=== PATIENT | female | born 1970 | race Caucasian/White ===

== ENCOUNTER 2023-04-22 18:03 | Outpatient (CLI) | payer BC, SELFPAY | END 2023-04-22 18:04 | disposition home or self-care (01) | LOC: AMB 04-24 18:21 | PROVIDERS: PCP Family Medicine; Visit Provider Emergency Medicine | DX: R41.82 Altered mental status, unspecified (principal) | CPT/HCPCS: A0425; A0429 ==

== ENCOUNTER 2023-04-22 18:22 | Emergency (ER) | payer BC, SELFPAY ==
[2023-04-22 18:27] VITALS: BP 138/82; PULSE 74; RESP 18; TEMP 36.1; O2SAT 98
[2023-04-22 22:30] VITALS: BP 125/74; PULSE 68; RESP 18; TEMP 36.6; O2SAT 98
--- NOTE | 2023-04-23 02:19 | ED_ITS ---
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 Patient reports that she has been under some stress today. She has 2 jobs. 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 This evening she was at her 2nd job as a counselor. She began to have symptoms at around 5:00 p.m. that her typical for her migraine aura. She has long history of migraines and there often preceded by a visual aura of some flashing colitis scope lights in her vision. This lasted about 15 or 20 minutes. Subsequently she also had an episode where she said she ?just did not feel right?. She had trouble thinking of the right words for things such as the word for drywall and for other construction related words. However she was able to speak to her coworkers and people around her and they did not notice any expressive aphasia or slurred speech. There were no other focal deficits. No facial droop. No numbness or tingling in her face, ar ms or legs. No focal weakness. Symmetric blending coordinator strength that she checked with her coworkers. The symptoms of trouble thinking lasted for about 20 minutes or half an hour and then resolved. After that she also did develop a mild headache. Even that now has gotten better. At this point she is feeling back to normal. No other symptoms lately. No recent chest pain or palpitations. No fever. No recent head injury. No stiff neck. No nausea or vomiting. Related Data Home Medications Medication Instructions Recorded Confirmed allopurinol 100 mg tablet 200 mg PO DAILY 04/22/23 04/22/23 metformin 1,000 mg tablet 1,000 mg PO BID 04/22/23 04/22/23 metoprolol tartrate 50 mg tablet 50 mg PO BID 04/22/23 04/22/23 paroxetine HCl 40 mg tablet 40 mg PO DAILY 04/22/23 04/22/23 triamterene 37.5 1 cap PO QAM 04/22/23 04/22/23 mg-hydrochlorothiazide 25 mg capsule Allergies Allergy/AdvReac Type Severity Reaction Status Date / Time prochlorperazine AdvReac Hallucinati Verified 04/22/23 18:32 [From Compazine] [facility] Social History Smoking Status: Never smoker Second hand tobacco smoke exposure: No How often do you have a drink containing alcohol: never How often do you have six or more drinks on one occasion: Never AUDIT-C Alcohol total score: 0 Non-prescribed substance use: denies use Exam Narrative: Exam Narrative: Constitutional: Appears well-developed and well-nourished. Alert. Conversant. Non toxic. HENT: Head: Atraumatic. Nose: Nose normal. Mouth/Throat: Oral mucosa is clear and moist. no trismus. Pharynx normal. Tonsils symmetric. No tonsillar enlargement, erythema, or exudate. Eyes: Conjunctivae normal. EOM normal. Pupils equal, round, and reactive to light. No scleral icterus. Neck: Normal range of motion. Neck supple. No tracheal deviation present. Cardiovascular: Normal rate, regular rhythm. No gallop. No friction rub. No murmur heard. Symmetric radial artery pulses Pulmonary/Chest: Effort normal. No stridor. No respiratory distress. No wheezes. No rales. No rhonchi . No tenderness. Abdominal: Soft. Bowel sounds normal. No distension. No mass. No tenderness. No rebound. No guarding. Musculoskeletal: RUE: Normal range of motion. No tenderness. No deformity LUE: Normal range of motion. No tenderness. No deformity RLE: Normal range of motion. No edema. No tenderness. No deformity LLE: Normal range of motion. No edema. No tenderness. No deformity Lymph: No cervical adenopathy. Neurological: Mental status normal. Attention normal. Alert and oriented x3. GCS 15. Memory normal. Speech fluent. Cognition normal. Cranial Nerves intact II-XII except I did not formally test gag or visual acuity. EOMI. Palate elevates symmetrically and tongue protrudes in the midline. Strength: 5/5 trapezius on the right and left 5/5 deltoid on the right and left 5/5 biceps on the right and left 5/5 triceps on the right and left 5/5 blending coordinator on the right and left 5/5 thumb opposition on the right and le ft 5/5 finger abduction on the right and le ft 5/5 hip flexors (L3) on the right and le ft 5/5 quadriceps (L4) on the right and lef t 5/5 tibialis anterior on the right and l eft 5/5 EHL (L5) on the right and left 5/5 gastrocnemius (S1) on the right and left 5/5 hamstring on the right and left Sensation intact to light touch in both upper extremities (C4-T1) Sensation intact to light touch in Both lower extremities (L4-S1). Finger to nose and coordination normal. Gait normal. Skin: Skin is warm and dry. No rash noted. No pallor. Normal capillary refill. Psychiatric: Normal mood. Polite but mildly anxious. Const: Vital Signs, click to edit/add: Vital Signs - 24 hr 04/22/23 18:27 04/22/23 22:30 04/22/23 22:30 Temperature 96.9 F L 97.9 F 97.9 F Pulse Rate [Right Pulse Oximeter] 74 68 68 Respiratory Rate 18 18 18 Blood Pressure [Ri ght Upper Arm] 138/82 125/74 125/74 Pulse Oximetry 98 98 Oxygen Delivery Me thod Room Air Room Air Course Vital Signs Vital signs: Initial Vital Signs Temperature 96.9 F L 04/22/23 18:27 Temperature Source Temporal Artery Scan 04/22/23 18:27 Pulse Rate 74 04/22/23 18:27 Respiratory Rate 18 04/22/23 18:27 Blood Pressure 138/82 04/22/23 18:27 Blood Pressure Mean 100 04/22/23 18:27 Blood Pressure Position Sitting 04/22/23 18:27 Pulse Oximetry 98 04/22/23 18:27 Oxygen Delivery Method Room Air 04/22/23 18:27 Vital Signs Temperature 96.9 F L 04/22/23 18:27 Pulse Rate 74 04/22/23 18:27 Respiratory Rate 18 04/22/23 18:27 Blood Pressure 138/82 04/22/23 18:27 Pulse Oximetry 98 04/22/23 18:27 Oxygen Delivery Method Room Air 04/22/23 18:27 Temperature 97.9 F 04/22/23 22:30 Pulse Rate 68 04/22/23 22:30 Respiratory Rate 18 04/22/23 22:30 Blood Pressure 125/74 04/22/23 22:30 Pulse Oximetry 98 04/22/23 22:30 Oxygen Delivery Method Room Air 04/22/23 22:30 Medical Decision Making MDM Narrative Medical decision making narrative: This is a pleasant 53-year-old female presenting to the ER today with concern for an episode of neurologic symptoms. Based on the patient's reported history of visual scotomata, then brief neurologic symptoms of, followed by headache I suspect this is probably a migraine aura/migraine related phenomena. She has a known history of multiple previous migraines presenting with similar visual disturbance and headache. The 1 thing that is different tonight would be that she had an episode lasting about 20 minutes where she had trouble thinking of the right word. However during this episode she did not have any outward neurologic deficits and in fact had fluent, normal speech throughout. Differential would include possible TIA, possible atypical seizure, anxiety attack, among others. I discussed with the patient potential options. Based on my clinical impression I suspect it is highly likely this is a migraine phenomenon. In which case no further workup is needed. We discussed the possibility for TIA and the workup for that including EKG, labs, CT/CTA and potential need for MRI. We also discussed the potential risk that she might have a stroke if this was TIA (unlikely). We also discussed the possibility for some sort of atypical seizure. We discussed the need for EEG monitoring and further workup if his seizure was suspected. Ultimately at this point patient is feeling better. We decided to hold off on any further workup. Will discharge her home. Precautions for return to the ER with any recurrent symptoms carefully reviewed. Questions answered. Patient also has questions about whether not she is on the right dose of metformin (she has type 2 diabetes been is lost lot of weight over the past few months) and also what medicine would be best for her diabetic neuropathy affecting her feet. It sounds like she does not really have primary care that she likes and trust. Would recommend close outpatient follow-up with the [facility]. Discharge Plan Discharge Clinical Impression: Migraine headache with aura Patient Disposition: Home, Self-Care Condition: Stable Instructions: Migraine Headache (ED) Additional Instructions: As we discussed, please come back to the ER right away if you have any concerning symptoms especially more episodes of speech difficulty, numbness or tingling or weakness in your face, arms, or legs, trouble with her vision, or if you have any concerns. Please call the [facility] sheetfed press operator at [phone] tomorrow morning to schedule a follow-up appointment with a new primary care provider in the [facility]. You can tell than the ring the ER tonight and they need close ER follow-up. Continue on your current medications until you follow-up with your doctor. Prescriptions: No Action allopurinol 100 mg tablet 200 mg PO DAILY triamterene-hydrochlorothiazid 37.5-25 mg capsule 1 cap PO QAM metformin 1,000 mg tablet 1,000 mg PO BID metoprolol tartrate 50 mg tablet 50 mg PO BID paroxetine HCl 40 mg tablet 40 mg PO DAILY Follow Up/Referrals: Oc Gimenez MD [Primary Care Provider] - Stand Alone Forms: [employer] Info Instructions
== END 2023-04-22 22:31 | disposition home or self-care (01) ==
LOC: ED 22:26
PROVIDERS: Emergency Provider Emergency Medicine; PCP Family Medicine
DX: G43.109 Migraine with aura, not intractable, without status migrainosus (principal)
CPT/HCPCS: 99283

== ENCOUNTER 2023-05-12 13:43 | Emergency (ER) | payer BC, SELFPAY ==
[2023-05-12 13:48] VITALS: BP 130/76; PULSE 64; RESP 16; TEMP 36; O2SAT 100
--- NOTE | 2023-05-12 13:54 | ED.GENADULT ---
HPI - General Adult General Date Seen: 05/12/23 Chief complaint: Eye Problems Stated complaint: Periorbital celulitis diagnosed at urgent care Fri Time Seen by Provider: 05/12/23 13:45 History of Present Illness HPI narrative: 53-year-old female who has a past medical history including obesity, type 2 diabetes, migraine headaches, anxiety, history of childhood absence seizures who presents to the ER today for redness, swelling, and pain involving her upper left eyelid as well as pain involving her left eye and eye socket. She does not wear glasses or contacts. No previous history of eye infections. She is not immunosuppressed. She has diabetes but has lost lot of weight recently and is very well controlled. On she began to notice little bit distant discomfort with her left eye where it felt irritated and when she looked up words she felt like her vision was a bit blurry or perhaps doubled. The following day she developed more redness especially the upper eyelid and pain in her eye. She was seen in urgent care. She was diagnosed with periorbital cellulitis. She was given prescriptions for Omnicef and Bactrim. She took 1 dose of those antibiotics Saturday, 2 doses yesterday on Saturday, and 1 dose this morning. She has really not improved. She was told if she is not better by Saturday that she should come to the ER. She feels like if anything her eyes a little bit more swollen. She has not had a fever. No swelling of the lower lid. Right eye is normal. No diffuse headache. No other rash on her face or scalp. She has had a little bit of popping in her left ear but no earache. She feels pain when she tries to direct her gaze upward and thinks that her vision might be slightly blurry when she tries to look up with her eyes. To look up she feels best if she just extends her neck backward. No pain when she moves her eyes from side to side or when she looks downward. No known trauma. No known foreign body in the eye. No chemical exposure. Related Data Home Medications Medication Instructions Recorded Confirmed allopurinol 100 mg tablet 200 mg PO DAILY 04/22/23 05/10/23 metformin 1,000 mg tablet 1,000 mg PO BID 04/22/23 05/10/23 metoprolol tartrate 50 mg tablet 50 mg PO BID 04/22/23 05/10/23 paroxetine HCl 40 mg tablet 40 mg PO DAILY 04/22/23 05/10/23 triamterene 37.5 1 cap PO QAM 04/22/23 05/10/23 mg-hydrochlorothiazide 25 mg capsule atorvastatin 20 mg tablet 20 mg PO DAILY 05/10/23 05/10/23 Previous Rx's Medication Instructions Recorded cefdinir 300 mg capsule 300 mg PO BID 5 days #10 caps 05/10/23 sulfamethoxazole 800 1 tab PO BID 5 days #10 tabs 05/10/23 mg-trimethoprim 160 mg tablet (Bactrim DS) Allergies Allergy/AdvReac Type Severity Reaction Status Date / Time prochlorperazine AdvReac Hallucinati Verified 05/10/23 15:18 [From Compazine] ng almonds Allergy Uncoded 05/10/23 15:18 [facility] Social History Smoking Status: Never smoker Second hand tobacco smoke exposure: No How often do you have a drink containing alcohol: never How often do you have six or more drinks on one occasion: Never AUDIT-C Alcohol total score: 0 Non-prescribed substance use: denies use Exam Narrative: Exam Narrative: Constitutional: Appears well-developed and well-nourished. Alert. Conversant. Non toxic. Calm and polite. She remembers me from a recent ER visit. HENT: Head: Atraumatic. Nose: Nose normal. No depressed skull fracture, Raccoon Eyes, York's sign, or hemotympanum. Face normal. TMs normal Mouth/Throat: Oral mucosa is clear and moist. no trismus. Pharynx normal. Tonsils symmetric. No tonsillar enlargement, erythema, or exudate. Eyes: She does have erythema with swelling of her left eye upper eyelid. Lower lids are normal. Right eye lids are normal. She has mild injection of the bulbar conjunctiva of the left eye. Careful inspection of the upper lower lids reveals no evidence for any foreign body. No vesicular lesions. No purulent drainage or crusting. Using slit lamp we inspected for foreign bodies and none are detected. She does not wear contacts. Anterior chamber is quiescent. No cell or flare. No corneal ulcer. No perilimbal injection. Fluorescein exam is negative for any uptake on the cornea. No corneal abrasion, herpetic dendrites. Intra-ocular pressure of the left eye is less than 10 on 2 measurements. Neck: Normal range of motion. Neck supple. No tracheal deviation present. Cardiovascular: Normal rate, regular rhythm. No gallop. No friction rub. No murmur heard. Symmetric radial artery pulses Pulmonary/Chest: Effort normal. No stridor. No respiratory distress. No wheezes. No rales. No rhonchi . No tenderness. Abdominal: Soft. Bowel sounds normal. No distension. No mass. No tenderness. No rebound. No guarding. Musculoskeletal: RUE: Normal range of motion. No tenderness. No deformity LUE: Normal range of motion. No tenderness. No deformity RLE: Normal range of motion. No edema. No tenderness. No deformity LLE: Normal range of motion. No edema. No tenderness. No deformity Lymph: No cervical adenopathy. Neurological: Alert and oriented to person, place, and time. Normal strength. CN II-VII intact. No sensory deficit. GCS eye subscore is 4. GCS verbal subscore is 5. GCS motor subscore is 6. Normal coordination Skin: Skin is warm and dry. No rash noted. No pallor. Normal capillary refill. Psychiatric: Normal mood. Normal affect. Const: Vital Signs, click to edit/add: Vital Signs - 24 hr 05/12/23 13:48 Temperature 96.8 F L Pulse Rate [Pulse Oximeter] 64 Respiratory Rate 16 Blood Pressure [Ri ght Upper Arm] 130/76 Pulse Oximetry 100 Oxygen Delivery Me thod Room Air Course Course ED Course: Recheck-patient updated about CT findings at 3:30 p.m.. She is understandably upset. She agrees to plan to consult with male oncology. At 3:45 p.m. call through to [place] transfer line. Information sent to [place] [facility] requested Reevaluation(s) Reevaluation #1: Discussed with on-call credit risk modeler from [place]. They reviewed the patient's presentation. We reviewed the findings of a destructive bony lesion in the sphenoid bone that is invading the lateral wall of the patient's orbit also an abnormality in the right temporoparietal lobe concerning for a brain met. They recommend discharge from the ER today will have the patient follow-up in the ophthalmology clinic at [facility] tomorrow. They will contact the patient tomorrow morning to arrange that appointment. She will need to be seen by Oculoplastics and probably needs surgery for a tissue biopsy. At that point the patient can refer be set up with Oncology [facility] to determine overall plan of care. Reevaluation #2: Discussed with the patient and her son (by phone). They understand our concern for possible malignancy affecting her left eye and eye socket. They agree with the plan for outpatient follow-up with [facility] tomorrow. The ophthalmology clinic will contact them tomorrow morning to set up a specific time to be seen tomorrow. They are provided with the [facility] contact information so that if the [facility] breaks down and they do not contact her, she will call the clinic by noon. Vital Signs Vital signs: Initial Vital Signs Temperature 96.8 F L 05/12/23 13:48 Temperature Source Temporal Artery Scan 05/12/23 13:48 Pulse Rate 64 05/12/23 13:48 Pulse Rhythm Regular 05/12/23 13:48 Respiratory Rate 16 05/12/23 13:48 Blood Pressure 130/76 05/12/23 13:48 Blood Pressure Mean 94 05/12/23 13:48 Blood Pressure Position Sitting 05/12/23 13:48 Pulse Oximetry 100 05/12/23 13:48 Oxygen Delivery Method Room Air 05/12/23 13:48 Vital Signs Temperature 96.8 F L 05/12/23 13:48 Pulse Rate 64 05/12/23 13:48 Respiratory Rate 16 05/12/23 13:48 Blood Pressure 130/76 05/12/23 13:48 Pulse Oximetry 100 05/12/23 13:48 Oxygen Delivery Method Room Air 05/12/23 13:48 Temperature 96.8 F L 05/12/23 13:48 Pulse Rate 64 05/12/23 13:48 Respiratory Rate 16 05/12/23 13:48 Blood Pressure 130/76 05/12/23 13:48 Pulse Oximetry 100 05/12/23 13:48 Oxygen Delivery Method Room Air 05/12/23 13:48 Medical Decision Making MDM Narrative Medical decision making narrative: 53-year-old female presents to the ER today with discomfort and swelling of her left upper eyelid. She has already been on 2 days of antibiotics for periorbital cellulitis but came to the ER today because she is not getting better. She also has pain with extraocular movements and sensation of diplopia with upward gaze. On my evaluation I do not see any definite extraocular movement abnormality, EOM palsy, or entrapment. No evidence for any glaucoma, increased IO P, corneal ulcer, corneal abrasion, conjunctivitis. No evidence for any lid foreign body. Not consistent with blepharitis. No stye. I am not convinced that her upper eyelid swelling is purely a preseptal cellulitis. With her orbital symptoms I am concerned about possible orbital cellulitis, prompting CT scan of her head and orbits. CT scan shows apprise finding of a destructive bony lesion in the greater wing of the left sphenoid bone that also involves the lateral wall of the orbit. This is almost certainly what is causing the patient's high symptoms. There is also an abnormality affecting the patient's right temporoparietal lobe which could be potentially a malignant metastasis. This is a new diagnosis for the patient. She has no previous known history of malignancy. Discussed with the patient and her son. She was understandably upset. We made contact with the [facility]. Ask for consultations with Ophthalmology and Oncology to arrange a plan for workup and to determine the potential urgency of workup. With and intraorbital extension of the sphenoid mass and evolving I symptoms over the past 2 days, we do not want her to wait too long so before she develops vision threatening symptoms. In discussion with Ophthalmology they do not think the patient requires admission today will arrange for an outpatient visit for the patient tomorrow in their clinic and from there will arrange referral to Oncology. Patient will have an appointment within 24 hours at [facility]. I saw the patient a couple weeks ago for a headache as well as a self-limited episode of neurologic symptoms. Based on the patient's new finding of a right temporoparietal lesion, consider possible single episode of a partial seizure. She will need further workup through [facility]. Lab Data Labs: Lab Results 05/12/23 Range/Units 15:05 Sodium 137 (135-149) mmol/L Potassium 3.9 (3.6-5.1) mmol/L Chloride 98 (96-114) mmol/L Carbon Dioxide 28 (20-32) mmol/L Anion Gap 11 (7-15) mEq/L BUN 18 (7-30) mg/dL Creatinine 1.1 (0.5-1.5) mg/dL Estimated GFR 60 ml/min Glucose 144 H (60-115) mg/dL Calcium 9.7 (8.4-10.6) mg/dL Total Bilirubin 0.6 (0.1-1.5) mg/dL AST 45 H (12-35) U/L ALT 38 H (4-35) U/L Alkaline Phosphatase 146 (40-150) U/L Total Protein 8.1 (6.0-8.3) g/dL Albumin 4.4 (3.3-5.0) g/dL Imaging Data ct orbits: Attestation: I have reviewed the pertinent imaging results. Radiologist's impression: Impression: Destructive osseous lesion centered at the greater wing of the left sphenoid bone with destruction of the lateral orbital wall and protrusion into the extraconal fat. CT scan - head: Attestation: I have reviewed the pertinent imaging results. Radiologist's impression: Large confluent area of white matter edema in the right temporoparietal lobes. There is effacement of the overlying sulci but generally the ross-white differentiation is preserved. No intracranial hemorrhage. No mass, mass effect, or midline shift. The ventricles are normal in size and shape. Destructive bone lesion at the left greater wing of the sphenoid measures about 2 x 2 x 2 cm. There is coarse central bone mineralization. There is destruction of the bony lateral orbital wall with soft tissue mass protruding into the extra conal soft tissue. There is mild mass effect on the adjacent lateral rectus muscle. The tumor does not directly involve the inferior superior orbital foramina or the orbital apex. The tumor does destroys the anterior wall of the middle cranial fossa. No direct intraparenchymal extension seen. Mild left preseptal periorbital soft tissue edema or thickening. No intraconal mass. Normal size and shape of the globe. Orthotopically located lens. No foreign body. The right orbit and globe are normal. There are no other destructive osseous lesions. Small mucocele in the maxillary sinus. Paranasal sinuses are otherwise clear. The mastoids and middle ears are clear. Impression: 1. Destructive osseous lesion centered at the greater wing of the left sphenoid bone with destruction of the lateral orbital wall and a portion of the middle cranial fossa calvarium. There is protrusion into the left extraconal fat with mass effect on the lateral rectus muscle, which likely accounts for the patient`s symptoms. 2. Fairly large area of white matter edema with focal parenchymal swelling in the right temporoparietal lobes is suspicious for a brain mass. Discharge Plan Discharge Clinical Impression: Brain mass, Neoplasm of sphenoid bone Patient Disposition: Home, Self-Care Condition: Stable Instructions: Brain Tumors (DC) Additional Instructions: You should receive a phone call from the [facility] Ophthalmology Department tomorrow morning to schedule a recheck appointment with the ophthalmology clinic in [place] tomorrow 05/13/2023. If you do not receive a phone call by noon, call [phone] contact the schedulers for the [address] ophthalmology clinic If you have worsening symptoms, return to the ER right away. Prescriptions: No Action atorvastatin 20 mg tablet 20 mg PO DAILY sulfamethoxazole-trimethoprim [Bactrim DS] 800-160 mg tablet 1 tab PO BID 5 Days Qty: 10 0RF cefdinir 300 mg capsule 300 mg PO BID 5 Days Qty: 10 0RF allopurinol 100 mg tablet 200 mg PO DAILY triamterene-hydrochlorothiazid 37.5-25 mg capsule 1 cap PO QAM metformin 1,000 mg tablet 1,000 mg PO BID metoprolol tartrate 50 mg tablet 50 mg PO BID paroxetine HCl 40 mg tablet 40 mg PO DAILY Follow Up/Referrals: Provider,Not a Local [Primary Care Provider] - Stand Alone Forms: [employer] Info Instructions
--- NOTE | 2023-05-12 14:30 | CRLHL7_ITS ---
For Patients: As a result of the 21st Century Cures Act, medical imaging exams and procedure reports are released immediately into your electronic medical record. You may view this report before your referring provider. If you have questions, please contact your health care provider. Indication: Left eye pain and redness, diplopia Technique: CT of the brain/head without the use of IV contrast. Multiplanar axial, coronal, and sagittal reformats were reconstructed. Comparison: CT brain 07/19/2015 Findings: Large confluent area of white matter edema in the right temporoparietal lobes. There is effacement of the overlying sulci but generally the ross-white differentiation is preserved. No intracranial hemorrhage. No mass, mass effect, or midline shift. The ventricles are normal in size and shape. Destructive bone lesion at the left greater wing of the sphenoid measures about 2 x 2 x 2 cm. There is coarse central bone mineralization. There is destruction of the bony lateral orbital wall with soft tissue mass protruding into the extra conal soft tissue. There is mild mass effect on the adjacent lateral rectus muscle. The tumor does not directly involve the inferior superior orbital foramina or the orbital apex. The tumor does destroys the anterior wall of the middle cranial fossa. No direct intraparenchymal extension seen. Mild left preseptal periorbital soft tissue edema or thickening. No intraconal mass. Normal size and shape of the globe. Orthotopically located lens. No foreign body. The right orbit and globe are normal. There are no other destructive osseous lesions. Small mucocele in the maxillary sinus. Paranasal sinuses are otherwise clear. The mastoids and middle ears are clear. Impression: 1. Destructive osseous lesion centered at the greater wing of the left sphenoid bone with destruction of the lateral orbital wall and a portion of the middle cranial fossa calvarium. There is protrusion into the left extraconal fat with mass effect on the lateral rectus muscle, which likely accounts for the patient`s symptoms. 2. Fairly large area of white matter edema with focal parenchymal swelling in the right temporoparietal lobes is suspicious for a brain mass. Discussed with Dr. Moy at 3:26 p.m. PALEOBOTANIST on 05/12/2023. Please note that all CT scans at this facility use dose modulation, iterative reconstruction, and/or weight-based dosing when appropriate to reduce radiation dose to as low as reasonably achievable. Dictated by Camila Carcamo MD @ 05/12/2023 3:28:25 PM (Electronically Signed)
--- NOTE | 2023-05-12 14:30 | CRLHL7_ITS ---
For Patients: As a result of the Century Cures Act, medical imaging exams and procedure reports are released immediately into your electronic medical record. You may view this report before your referring provider. If you have questions, please contact your health care provider. Indication: Left eye pain and redness, diplopia, retro-orbital pain Comparison: Same-day head CT from the prior head CT 07/19/2015 Technique: CT of the orbits without contrast. Multiplanar axial, coronal, and sagittal reformats were reconstructed. Contrast: None. Findings: Destructive bone lesion at the left greater wing of the sphenoid measures about 2.5 X 2.5 X 2.5 Cm. There is coarse central bone mineralization. There is destruction of the bony lateral orbital wall with soft tissue mass protruding into the extra conal soft tissue. There is mild mass effect on the adjacent lateral rectus muscle. The tumor does not directly involve the inferior or superior orbital foramina or the orbital apex. The tumor does destroys the anterior wall of the middle cranial fossa. No direct intraparenchymal extension seen. Mild left preseptal periorbital soft tissue edema or thickening. No intraconal mass. Normal size and shape of the globe. Orthotopically located lens. No foreign body. The right orbit and globe are normal. There are no other destructive osseous lesions. Small mucocele in the maxillary sinus. Paranasal sinuses are otherwise clear. The mastoids and middle ears are clear. Right intracranial abnormalities better seen on same day head CT. Impression: Destructive osseous lesion centered at the greater wing of the left sphenoid bone with destruction of the lateral orbital wall and protrusion into the extraconal fat. Discussed with Dr. Moy at 3:26 p.m. MATERIAL EXPEDITER on 05/12/2023. Please note that all CT scans at this facility use dose modulation, iterative reconstruction, and/or weight-based dosing when appropriate to reduce radiation dose to as low as reasonably achievable. Dictated by Camila Carcamo MD @ 05/12/2023 3:26:48 PM (Electronically Signed)
[2023-05-12 15:25] LABS: Albumin* 4.4 g/dL (3.3-5.0); Chloride* 98 mmol/L (96-114); Sodium* 137 mmol/L (135-149)
[2023-05-12 15:26] LABS: Potassium* 3.9 mmol/L (3.6-5.1)
[2023-05-12 15:28] LABS: Alanine Aminotransferase* 38 U/L (4-35); Alkaline Phosphatase* 146 U/L (40-150); Anion Gap 11 mEq/L (7-15); Aspartate Amino Transferase* 45 U/L (12-35); Bilirubin Total* 0.6 mg/dL (0.1-1.5); Blood Urea Nitrogen* 18 mg/dL (7-30); Carbon Dioxide* 28 mmol/L (20-32); Creatinine* 1.1 mg/dL (0.5-1.5); Estimated Glomerular Filt Rate 60 ml/min; Glucose* 144 mg/dL (60-115); Total Protein* 8.1 g/dL (6.0-8.3)
[2023-05-12 15:29] LABS: Calcium* 9.7 mg/dL (8.4-10.6)
--- NOTE | 2023-05-13 18:07 | ED.NURSE ---
pt called because [facility] did not have any record of her. called [place] transfer nurse who was able to call the oncaries opthamologist at [facility] who as the same doctor that was consulted yesterday. said there was a misunderstanding with the scheduling desk. opthamologist sent 2nd email for scheduling desk. pt to call in the [facility] in the morning to get scheduled. if pt does not still have direct number can call the diesel pile driver operator at [facility] at [phone]
== END 2023-05-12 17:25 | disposition home or self-care (01) ==
PROVIDERS: Emergency Provider Emergency Medicine
DX: D33.2 Benign neoplasm of brain, unspecified (principal)
CPT/HCPCS: 36415; 70450; 70480; 80048; 80053; 99284; A9270

== ENCOUNTER 2023-06-04 13:46 | Outpatient (CLI) | payer BC, SELFPAY | END 2023-06-04 13:47 | disposition home or self-care (01) | LOC: MRI 13:48 | PROVIDERS: Visit Provider Nurse Practitioner | DX: C34.92 Malignant neoplasm of unspecified part of left bronchus or lung (principal) | CPT/HCPCS: 70553; A9575 ==

== ENCOUNTER 2023-08-31 14:14 | Emergency (ER) | payer BC, SELFPAY ==
[2023-08-31 14:31] VITALS: BP 123/85; PULSE 99; RESP 16; TEMP 36.6; O2SAT 99
[2023-08-31] MEDS: 0.9 % SODIUM CHLORIDE 1000 ml 1,000 ML IV (15:20)
[2023-08-31] MEDS: ONDANSETRON 2 MG/ML inj 4 MG IVP (15:44)
--- NOTE | 2023-08-31 16:16 | ED.GENADULT ---
HPI - General Adult General Chief complaint: Weakness Stated complaint: Nausea, unable to eat, dehydrated, has flu A Time Seen by Provider: 08/31/23 14:33 Source: patient Mode of arrival: ambulatory Limitations: no limitations History of Present Illness HPI narrative: Patient is a 53-year-old female, with stage IV lung cancer, who presents today with nausea vomiting. Patient states she has been having nausea vomiting now for several weeks ever since chemo started. However about 2 weeks ago she developed influenza a and since then her vomiting has worsened. She states that for the last 2 weeks she has not been able to keep down anything at all. She has mild diarrhea which is also been present for several weeks and started with chemo. She denies any recent fevers or chills. She feels like her other influenza symptoms have gotten better. She is here today requesting IV fluids. She does not feel that laboratory workup is necessary. Related Data Home Medications Medication Instructions Recorded Confirmed allopurinol 100 mg tablet 200 mg PO DAILY 04/22/23 08/31/23 metformin 1,000 mg tablet 1,000 mg PO BID 04/22/23 08/31/23 metoprolol tartrate 50 mg tablet 50 mg PO BID 04/22/23 08/31/23 paroxetine HCl 40 mg tablet 40 mg PO DAILY 04/22/23 08/31/23 triamterene 37.5 1 cap PO QAM 04/22/23 08/31/23 mg-hydrochlorothiazide 25 mg capsule atorvastatin 20 mg tablet 20 mg PO HS 05/10/23 08/31/23 memantine 10 mg tablet 10 mg PO BID 08/21/23 08/31/23 ondansetron 8 mg disintegrating 8 mg PO Q8H PRN 08/21/23 08/31/23 tablet osimertinib 80 mg tablet (Tagrisso) 80 mg PO DAILY 08/21/23 08/31/23 Allergies Allergy/AdvReac Type Severity Reaction Status Date / Time almond Allergy Verified 08/31/23 14:30 prochlorperazine AdvReac Hallucinati Verified 08/31/23 14:30 [From Compazine] ng Review of Systems Status of ROS: Reports: 10 or more systems reviewed and unremarkable except as noted in History and below PFSH PFSH Social History Smoking Status: Never smoker Second hand tobacco smoke exposure: No How often do you have a drink containing alcohol: never How often do you have six or more drinks on one occasion: Never AUDIT-C Alcohol total score: 0 Non-prescribed substance use: denies use service: No Exam Narrative: Exam Narrative: Well-nourished well-developed patient in no acute distress. Alert and oriented x3. Answers questions appropriately. Mood and affect are appropriate. Thoughts are goal oriented and rational. No tangential or magical thinking noted. Patient speaks in full sentences without needing to catch her breath. Patient has central obesity with rather thin limbs. HEENT: Normocephalic atraumatic. Pupils are equally round reactive to light. Extraocular muscles are intact. Conjunctivae are moist without any icterus noted. Dry mucous membranes. Posterior pharynx is normal. Neck is soft. Cardiovascular: Heart is regular rate and rhythm. Lungs: Clear to auscultation bilaterally no wheezes rhonchi or rales are appreciated. Abdomen: Soft, protuberant and nontender. Normal bowel sounds. Extremities: Bilateral lower extremities are without edema. Skin: Well perfused without any obvious rashes. Slightly dry. Vital signs are entirely normal. Const: Vital Signs, click to edit/add: Vital Signs - 24 hr 08/31/23 14:31 Temperature 97.9 F Pulse Rate [Pulse Oximeter] 99 Respiratory Rate 16 Blood Pressure [Ri ght Upper Arm] 123/85 Pulse Oximetry 99 Oxygen Delivery Me thod Room Air Course Course ED Course: IV was established and patient received 1 L of normal saline and IV Zofran. After which she did state that her stomach felt more settled. Patient did not have any vomiting while she was in the ER today. Vital Signs Vital signs: Initial Vital Signs Temperature 97.9 F 08/31/23 14:31 Temperature Source Temporal Artery Scan 08/31/23 14:31 Pulse Rate 99 08/31/23 14:31 Respiratory Rate 16 08/31/23 14:31 Blood Pressure 123/85 08/31/23 14:31 Blood Pressure Mean 97 08/31/23 14:31 Blood Pressure Position Semi-Fowlers 08/31/23 14:31 Pulse Oximetry 99 08/31/23 14:31 Oxygen Delivery Method Room Air 08/31/23 14:31 Vital Signs Temperature 97.9 F 08/31/23 14:31 Pulse Rate 99 08/31/23 14:31 Respiratory Rate 16 08/31/23 14:31 Blood Pressure 123/85 08/31/23 14:31 Pulse Oximetry 99 08/31/23 14:31 Oxygen Delivery Method Room Air 08/31/23 14:31 Temperature 97.9 F 08/31/23 14:31 Pulse Rate 99 08/31/23 14:31 Respiratory Rate 16 08/31/23 14:31 Blood Pressure 123/85 08/31/23 14:31 Pulse Oximetry 99 08/31/23 14:31 Oxygen Delivery Method Room Air 08/31/23 14:31 Medications Administered Medications: Discontinued Medications Generic Name Dose Route Start Last Admin Trade Name Freq PRN Reason Stop Dose Admin Sodium Chloride 1,000 mls @ 1,000 mls/hr 08/31/23 14:45 08/31/23 15:20 0.9 % Sodium Chloride 1000 Ml IV 08/31/23 15:44 1,000 mls/hr .Q1H HENRY Administration Ondansetron HCl 4 mg 08/31/23 15:02 08/31/23 15:44 Ondansetron 2 Mg/Ml Inj IVP 08/31/23 15:03 4 mg ONCE ONE Administration Medical Decision Making MDM Narrative Medical decision making narrative: Vomiting in the setting of chemotherapy. We discussed eating very small amounts of food or very small sips of fluid but doing that frequently throughout the day. I do want her to call her oncologist to discuss her symptoms to see if anything else can be done. She does have Zofran at home. Medical Records Medical records reviewed: Yes I reviewed the patient's medical records Discharge Plan Discharge Clinical Impression: Vomiting Patient Disposition: Home, Self-Care Condition: Stable Additional Instructions: You should contact your oncologist to discuss anything else can be done for the vomiting that you have been having for so long now. Try to drink very small sips of fluid but frequently throughout the day. Prescriptions: No Action atorvastatin 20 mg tablet 20 mg PO HS ondansetron 8 mg tablet,disintegrating 8 mg PO Q8H PRN Tagrisso 80 mg tablet 80 mg PO DAILY memantine 10 mg tablet 10 mg PO BID allopurinol 100 mg tablet 200 mg PO DAILY triamterene-hydrochlorothiazid 37.5-25 mg capsule 1 cap PO QAM metformin 1,000 mg tablet 1,000 mg PO BID metoprolol tartrate 50 mg tablet 50 mg PO BID paroxetine HCl 40 mg tablet 40 mg PO DAILY Follow Up/Referrals: Provider,Not a Local [Primary Care Provider] - Stand Alone Forms: [facility] Info Instructions
[2023-08-31 16:22] VITALS: BP 104/63; PULSE 71; RESP 18; TEMP 36.8; O2SAT 100
== END 2023-08-31 16:42 | disposition home or self-care (01) ==
PROVIDERS: Emergency Provider Family Medicine
DX: R11.2 Nausea with vomiting, unspecified (principal); C34.92 Malignant neoplasm of unspecified part of left bronchus or lung
CPT/HCPCS: 96374; 99283; 99284; J2405; J7030

== ENCOUNTER 2023-10-19 18:48 | Inpatient (IN) | payer BC, SELFPAY ==
[2023-10-19 18:50] VITALS: BP 173/82; PULSE 80; RESP 18; TEMP 36.6; O2SAT 94
--- NOTE | 2023-10-19 18:52 | ED_ITS ---
HPI - General Adult General Date Seen: 10/19/23 Chief complaint: Shortness of Breath/Dyspnea Stated complaint: shortness of breath, chest pain Time Seen by Provider: 10/19/23 18:51 History of Present Illness HPI narrative: 53-year-old female with a past medical history notable for stage IV lung cancer, manifesting as a mass affecting her sphenoid sinus last fall, following a [facility], on Osemertinib. She has had brain radiation with shrinking of the size of her head tumor, as well as radiation to multiple sites for metastases to her bony pelvis that are also all shrinking and improving. She has had radiation to her lung tumor and his trunk in size by more than half. Most recent PET scan showed only minimal activity in her bone marrow which may actually be signs that her bone marrow is reacting to her anemia to produce extra red cells. She has also developed anemia with recent hemoglobin down to about 7. Unclear source of anemia. He she had a recent trip to [place] and back. During that trip, for several weeks she was suffering from vomiting and dehydration related to influenza and norovirus. She apparently developed an acute kidney injury with a creatinine peaking around 5. She required hospitalization for a few days at a hospital in [facility] a couple weeks ago. She says she receives 6 bags of IV fluid for dehydration. Subsequent kidney function has normalized. She had a checkup with her thoracic oncologist at [facility] in [place] yesterday. He says her lungs sounded good. She had a battery of blood tests yesterday. She is able to show me some of the test results through her smart phone based my chart. Most recent labs from yesterday, 10/17, include: BUN 14, creatinine 1.63. This is approaching return to her baseline from June but she has been referred to a computer systems security analyst at [place]. Hemoglobin was 7.6. It had trended down from 11 a couple of months ago. She denies any recent black or bloody stools or other sources of bleeding. Unclear source of anemia. Her doctors at [place] are doing a workup for anemia. White blood cell count was 4.6. Total it 0, 3.38. Lymphocytes were 0.62. She says her doctor said her lungs sound good and she was doing well yesterday. In retrospect she thinks she was probably a little bit ?wheezy? when she was visiting the doctor yesterday. She has no history of asthma or COPD. She was visiting her best friend today. They were at home seeing her best friend's new dogs when she began to feel short of breath. She also had a nonproductive cough. Her friend says she thought she might be allergic to the dogs. She was not having any itchy eyes, throat swelling, hives or other clear symptoms of anaphylaxis. She has not had a fever. No chest pain or any pain radiating to her jaw, arm, or back. No palpitations. No new swelling in her legs. Her friend says that her breathing sounded audible E raspy and gurgly when she was breathing out like she was wheezing. She says she is feeling much better, but not completely back to normal, since she arrived here in the ER. Related Data Home Medications Medication Instructions Recorded Confirmed allopurinol 100 mg tablet 200 mg PO DAILY 04/22/23 10/20/23 metformin 1,000 mg tablet 1,000 mg PO BID 04/22/23 10/20/23 metoprolol tartrate 50 mg tablet 50 mg PO BID 04/22/23 10/20/23 paroxetine HCl 40 mg tablet 40 mg PO DAILY 04/22/23 10/20/23 triamterene 37.5 1 cap PO QAM 04/22/23 10/20/23 mg-hydrochlorothiazide 25 mg capsule atorvastatin 20 mg tablet 20 mg PO HS 05/10/23 10/20/23 memantine 10 mg tablet 10 mg PO BID 08/21/23 10/20/23 osimertinib 80 mg tablet (Tagrisso) 80 mg PO DAILY 08/21/23 10/20/23 sennosides 8.6 mg tablet (Senna 8.6 - 17.2 mg PO DAILY 10/20/23 10/20/23 Lax) Allergies Allergy/AdvReac Type Severity Reaction Status Date / Time almond Allergy Verified 08/31/23 14:30 prochlorperazine AdvReac Hallucinati Verified 08/31/23 14:30 [From Compazine] [facility] Medical History (Updated 10/20/23 @ 14:34 by Agnes Mcdonald MD) Essential hypertension ?I10 - Essential (primary) hypertension (ICD-10) Generalized anxiety disorder ?F41.1 - Generalized anxiety disorder (ICD-10) Obstructive sleep apnea of adult ?G47.33 - Obstructive sleep apnea (adult) (pediatric) (ICD-10) Diabetes mellitus type 2, controlled ?E11.9 - Type 2 diabetes mellitus without complications (ICD-10) Secondary malignant neoplasm of brain ?C79.31 - Secondary malignant neoplasm of brain (ICD-10) Secondary malignant neoplasm of bone ?C79.51 - Secondary malignant neoplasm of bone (ICD-10) Acute kidney failure with tubular necrosis ?N17.0 - Acute kidney failure with tubular necrosis (ICD-10) Anemia ?D64.9 - Anemia, unspecified (ICD-10) Adenocarcinoma of left lung, stage 4 ?C34.92 - Malignant neoplasm of unspecified part of left bronchus or lung (ICD-10) Stage 4 lung cancer ?C34.90 - Malignant neoplasm of unspecified part of unspecified bronchus or lung (ICD-10) Social History What is your current living situation?: I presently have a place to live Problems where you live: no known problems Problems where you live details: n/a In the past 12 months, utilities in danger of being shut off: no In past 12 months, lack of transportation kept you from medical appts, meetings, work, or getting things needed for daily living: no In the past 12 mos, have been you worried that your food would run out before you had money to buy more?: never true In the past 12 mos, the food you bought just didn't last and you didn't have money to buy more?: never true Smoking Status: Never smoker Second hand tobacco smoke exposure: No How often do you have a drink containing alcohol: never How often do you have six or more drinks on one occasion: Never AUDIT-C Alcohol total score: 0 Non-prescribed substance use: denies use Caffeine: Yes How often does anyone, including family, friends and others, physically hurt you : never How often does anyone, including family, friends and others, insult or talk down to you: never How often does anyone, including family, friends and others, threaten you with harm: never How often does anyone, including family, friends and others, scream or curse at you: never service: No Exam Narrative: Exam Narrative: Constitutional: Appears well-developed and well-nourished. Alert. Conversant. Speaking full sentences. Respirations are nonlabored. Breathing easily. Non toxic. HENT: Head: Atraumatic. Nose: Nose normal. Mouth/Throat: Oral mucosa is clear and moist. no trismus. Pharynx normal. Tonsils symmetric. No tonsillar enlargement, erythema, or exudate. Eyes: Conjunctivae normal. EOM normal. Pupils equal, round, and reactive to light. No scleral icterus. Neck: Normal range of motion. Neck supple. No tracheal deviation present. No JVD Cardiovascular: Normal rate, regular rhythm. No gallop. No friction rub. No murmur heard. Symmetric radial and PT artery pulses Pulmonary/Chest: Effort normal. No stridor. No respiratory distress. Bilateral expiratory rales. Not really wheezing. No rhonchi . No tenderness. Abdominal: Soft. Bowel sounds normal. No distension. No mass. No tenderness. No rebound. No guarding. Musculoskeletal: RUE: Normal range of motion. No tenderness. No deformity LUE: Normal range of motion. No tenderness. No deformity RLE: Normal range of motion. No edema. No tenderness. No deformity LLE: Normal range of motion. No edema. No tenderness. No deformity Neurological: Alert and oriented to person, place, and time. Normal strength. CN II-VII intact. No sensory deficit. GCS eye subscore is 4. GCS verbal subscore is 5. GCS motor subscore is 6. Normal coordination Skin: Skin is warm and dry. No rash noted. No pallor. Normal capillary refill. Psychiatric: Normal mood. Normal affect. Const: Vital Signs, click to edit/add: Vital Signs - 24 hr 10/19/23 18:50 10/19/23 21:53 10/19/23 23:00 Temperature 97.8 F Pulse Rate [Right Pulse Oximeter] 80 76 Respiratory Rate 18 18 20 Blood Pressure [Ri ght Upper Arm] 173/82 H 144/67 H Pulse Oximetry 94 96 96 Oxygen Delivery Me thod Room Air Nasal Cannula Nasal Cannula Oxygen Flow Rate 1 1 10/19/23 23:25 10/19/23 23:25 Temperature Pulse Rate [Right Pulse Oximeter] Respiratory Rate Blood Pressure [Ri ght Upper Arm] Pulse Oximetry 96 96 Oxygen Delivery Me thod Nasal Cannula Oxygen Flow Rate 1 Course Vital Signs Vital signs: Initial Vital Signs Temperature 97.8 F 10/19/23 18:50 Temperature Source Temporal Artery Scan 10/19/23 18:50 Pulse Rate 80 10/19/23 18:50 Respiratory Rate 18 10/19/23 18:50 Blood Pressure 173/82 H 10/19/23 18:50 Blood Pressure Mean 112 H 10/19/23 18:50 Blood Pressure Position Sitting 10/19/23 18:50 Pulse Oximetry 94 10/19/23 18:50 Oxygen Delivery Method Room Air 10/19/23 18:50 Vital Signs Temperature 97.8 F 10/19/23 18:50 Pulse Rate 80 10/19/23 18:50 Respiratory Rate 18 10/19/23 18:50 Blood Pressure 173/82 H 10/19/23 18:50 Pulse Oximetry 94 10/19/23 18:50 Oxygen Delivery Method Room Air 10/19/23 18:50 Temperature 97.7 F 10/20/23 13:57 Pulse Rate 67 10/20/23 13:57 Respiratory Rate 18 10/20/23 13:57 Blood Pressure 118/62 10/20/23 13:57 Pulse Oximetry 98 10/20/23 13:57 Oxygen Delivery Method Nasal Cannula 10/20/23 10:55 Oxygen Flow Rate 2 10/20/23 10:55 Medications Administered Medications: Generic Name Dose Route Start Last Admin Trade Name Freq PRN Reason Stop Dose Admin Acetaminophen 650 mg 10/19/23 23:53 10/20/23 00:24 Acetaminophen 325 Mg Tablet PO 650 mg Q6H PRN Administration Albuterol/Ipratropium 1 neb 10/20/23 02:22 10/20/23 02:30 Iprat-Albut 0.5-2.5 Mg/3 Ml Neb IH 1 neb Q2H PRN Administration Allopurinol 200 mg 10/20/23 09:00 10/20/23 09:52 Allopurinol 100 Mg Tablet PO 200 mg DAILY HENRY Administration Insulin Aspart 0 unit 10/20/23 07:30 10/20/23 12:17 Insulin Aspart 100 Unit/Ml SUBCUT Not Given [facility] Protocol Memantine 10 mg 10/20/23 09:00 10/20/23 09:53 Memantine Hcl 10 Mg Tablet PO 10 mg BID HENRY Administration Metoprolol Tartrate 50 mg 10/20/23 09:00 10/20/23 09:52 Metoprolol Tartrate 50 Mg Tablet PO 50 mg BID HENRY Administration Tagrisso 80 Mg 0 each 10/20/23 11:45 10/20/23 12:15 Tablet PO 1 each DAILY HENRY Administration Ondansetron HCl 8 mg 10/19/23 23:53 10/20/23 01:01 Ondansetron Odt 4 Mg Tab PO 8 mg Q8H PRN Administration Paroxetine HCl 40 mg 10/20/23 09:00 10/20/23 09:52 Paroxetine 20 Mg Tablet PO 40 mg DAILY HENRY Administration Potassium Chloride 20 meq 10/20/23 12:00 10/20/23 12:45 Potassium Chloride 10 Meq Capsule Er PO 20 meq TIDWM HENRY Administration Sodium Chloride 5 ml 10/20/23 09:00 10/20/23 09:53 Sodium Chloride 0.9 % (Flush) 10 Ml Syringe IVF 5 ml BID HENRY Administration Sodium Chloride 5 ml 10/20/23 09:00 10/20/23 12:19 Sodium Chloride 0.9 % (Flush) 10 Ml Syringe IVF 5 ml BID HENRY Administration Discontinued Medications Generic Name Dose Route Start Last Admin Trade Name Freq PRN Reason Stop Dose Admin Acetaminophen 1,000 mg 10/20/23 08:07 10/20/23 09:52 Acetaminophen 500 Mg Tablet PO 10/20/23 08:08 1,000 mg ONCE ONE Administration Albuterol/Ipratropium 1 neb 10/19/23 19:18 10/19/23 19:21 Iprat-Albut 0.5-2.5 Mg/3 Ml [facility] 10/19/23 19:19 1 neb ONCE ONE Administration Albuterol/Ipratropium 1 neb 10/19/23 21:06 10/19/23 20:40 Iprat-Albut 0.5-2.5 Mg/3 Ml [facility] 10/19/23 21:07 1 neb ONCE ONE Administration Furosemide 40 mg 10/19/23 23:53 10/20/23 00:24 Furosemide 10 Mg/Ml Inj IVP 10/19/23 23:54 40 mg ONCE ONE Administration Furosemide 40 mg 10/20/23 08:00 10/20/23 07:47 Furosemide 10 Mg/Ml Inj IVP 10/20/23 08:01 40 mg ONCE ONE Administration Furosemide 20 mg 10/20/23 08:07 10/20/23 14:01 Furosemide 10 Mg/Ml Inj IV 10/20/23 08:08 20 mg ONCE ONE Administration Potassium Bicarbonate 50 meq 10/19/23 23:53 10/20/23 00:24 Potassium Bicarb 25 Meq Effervescent Tab PO 10/19/23 23:54 50 meq ONCE ONE Administration Potassium Chloride 20 meq 10/20/23 08:00 10/20/23 07:47 Potassium Chloride 10 Meq Capsule Er PO 20 meq BIDWM HENRY Administration Medical Decision Making [facility] Narrative Medical decision making narrative: 53-year-old female with a history of metastatic lung cancer presents to the ER today with shortness of breath that began this afternoon. Initially she says this shortness of breath came on fairly suddenly this afternoon but in retrospect she says she was probably ?a little wheezy? yesterday as well. Differential is broad. EKG shows flat T-waves in nonspecific changes and no ischemia. No arrhythmia. No sign of pericarditis. Troponin is negative. She is not having any chest pain. At this point I do not think her shortness of breath represent ACS. Lung sounds were somewhat unusual with expiratory rales limp. She has no history of bronchospasm or asthma. We did administer nebulized is without any definitive improvement. With extra rales consider viral infections such as COVID. COVID, influenza, RSV PCRs are negative. She did have influenza requiring hospitalization about a month ago. Chest x-ray does not show any clear focal infiltrate to suggest bacterial pneumonia. She is not febrile. No tachycardia or hypotension or symptoms of septic shock. White blood cell count normal at 6.6. Chest x-ray does show a left sided pleural effusion. We do not have access to any recent chest imaging. So we do not know if this effusion is acute or chronic. We were able to review on her my chart and her most recent chest x-ray from May 2023 was clear. It is possible if this is enlarging infusion at could explain why she is short of breath and hypoxic. She also had a recent trip to [place] and back. With travel and active malignancy consider possible PE. She is not tachycardic but she is hypoxic. Initially the patient did not want an IV but I have ordered IV and CT PA to evaluate for possible PE and 2 more accurately characterize the size of her pleural effusion. Chest x-ray does not show any sign of pulmonary edema but BNP is elevated. Unclear etiology. Could potentially be heart strain from PE or from other causes per She is anemic. Hemoglobin 8.8. This is stable (actually up ) from her hemoglobin yesterday which was measured at 7.6. It sounds like this anemia is subacute and has developed over the past couple of months. No signs of active blood loss today. She is in the midst of workup for through the [facility]. She does have renal insufficiency. Creatinine today is 1.6 which is at her baseline. She had a recent acute kidney injury with a creatinine going as high as 5 about a month ago. Although there is a risk for contrast nephropathy your, the benefit of definitively evaluating for PE and further characterizing her pleural effusion by CT scan would outweigh the risk. I have contacted [facility]. Discussed with the medical transcriber of the day, Dr. Huitron. He agrees that the patient requires hospitalizations. In principle, for continuity would be best for the patient to be a male. Unfortunately, they are currently on divert and cannot accept her. Therefore she will have to be hospitalized here in [place]. Discussed with our hospitalist, Dr. Salmon, and he will presumptively a except, pending the results of the CT PA. I have discussed with my partner Dr. Amaya who will follow-up on the results of the CT and confirm the results with the hospitalist. Lab Data Labs: Lab Results 10/19/23 10/19/23 Range/Units 19:18 19:37 WBC 6.66 (4.50-11.00) K/uL RBC 2.93 L (4.00-5.20) m/uL Hgb 8.8 L (12.0-16.0) gm/dL Hct 29.2 L (33.0-51.0) % MCV 100 (80-100) fL MCH 30 (26-34) pg MCHC 30 L (32-36) gm/dL RDW Coeff of Patricia 20.4 H (11.5-15.5) % Plt Count 239 (140-440) K/uL Neut % (Auto) 78.5 H (42.0-72.0) % Lymph % (Auto) 10.8 L (20-44) % [place] % (Auto) 6.9 (0.0-11.0) % Eos % (Auto) 3.0 (0.0-7.0) % Baso % (Auto) 0.3 (0.0-3.0) % Neut # (Auto) 5.20 (1.7-7.0) K/uL Lymph # (Auto) 0.70 L (0.90-2.90) K/uL [place] # (Auto) 0.50 (0.00-0.90) K/UL Eos # (Auto) 0.20 (0.00-0.50) K/uL Baso # (Auto) 0.02 (0.00-0.30) K/uL Abs Immat Gran (auto) 0.03 (0.00-0.30) K/uL Imm/Tot Granulo (auto) 0.5 % Sodium 141 (135-149) mmol/L Potassium 3.3 L (3.6-5.1) mmol/L Chloride 106 (96-114) mmol/L Carbon Dioxide 23 (20-32) mmol/L Anion Gap 12 (7-15) mEq/L BUN 17 (7-30) mg/dL Creatinine 1.6 H (0.5-1.5) mg/dL Estimated Creat Clear 34.71 Estimated GFR 38 ml/min Glucose 109 (60-115) mg/dL Hemoglobin A1c 5.8 H (0-5.6) % Calcium 9.6 (8.4-10.6) mg/dL Troponin I < 0.01 L (0.01-0.04) ng/mL NT-Pro-B Natriuret Pep 4650 pg/mL SARS-CoV-2 (PCR) Negative SARS-CoV-2 (Negative) Influenza Type A (PCR) Negative PCR FLU A (Negative) Influenza Type B (PCR) Negative PCR FLU B (Negative) RSV (PCR) Negative PCR RSV (Negative) Imaging Data Chest x-ray: Attestation: I have reviewed the pertinent imaging results. My impression: Normal cardiac silhouette. Normal mediastinum. Left-sided pleural effusion. No pneumothorax. No definite focal infiltrate Radiologist's impression: FINDINGS: Mild soft tissue swelling in the index finger. No fracture, dislocation, or radiopaque foreign body. Small incidental sesamoid adjacent to the 2nd metacarpal head. ECG Data Interpretation: Normal sinus rhythm Rate: 77 VT: 152 QRS axis: Normal axis. ST segment/T wave: Diffuse T-wave flattening. No ST segment elevation or depression. Nonspecific T-wave abnormality. QTc: Prolonged QT. 488 Discharge Plan Discharge Clinical Impression: Pleural effusion, Hypoxia Patient Disposition: Admitted As Observation
--- NOTE | 2023-10-19 19:18 | XR_ITS ---
Patient: TARAH IRBY Facility:?[facility] Patient ID:?[id number] Site Patient ID:?[id number]. Site :?[id number] Study:?XRay-Chest 2 VIEW-10/19/2023 7:43:45 PM Ordering Physician:WALTER Final Report: INDICATION: Shortness of breath, bilateral wheezes, history of lung cancer. TECHNIQUE: PA and lateral chest. COMPARISON: None. FINDINGS: Small left pleural effusion. Approximately 2 cm spiculated nodule in the mid left lung. Comparison with any previous chest x-rays are recommended. 7 mm nodule in the right upper lung, possibly a granuloma. Otherwise unremarkable. Dictated by Luis Sr MD @ 10/19/2023 8:07:12 PM Signed by:?Luis Sr MD @10/19/2023 8:07:12 PM (Electronic Signature)
[2023-10-19] MEDS: IPRAT-ALBUT 0.5-2.5 MG/3 ML NEB 1 NEB IH ×2 (19:21→20:40)
[2023-10-19 19:43] LABS: Basophils Absolute Auto 0.02 K/uL (0.00-0.30); Basophils Percent Auto 0.3 % (0.0-3.0); Hematocrit 29.2 % (33.0-51.0); Hemoglobin* 8.8 gm/dL (12.0-16.0); Immature Granulocytes Abs Auto 0.03 K/uL (0.00-0.30); Immature Granulocytes Pct Auto 0.5 %; Lymphocytes Percent Auto 10.8 % (20-44); Mean Corpuscular HGB Conc 30 gm/dL (32-36); Mean Corpuscular Hemoglobin 30 pg (26-34); Mean Corpuscular Volume 100 fL (80-100); Monocytes Percent Auto 6.9 % (0.0-11.0); Neutrophils Percent Auto 78.5 % (42.0-72.0); Platelet Count* 239 K/uL (140-440); RDW Coefficient of Variation % 20.4 % (11.5-15.5); Red Blood Count 2.93 m/uL (4.00-5.20); White Blood Count* 6.66 K/uL (4.50-11.00)
[2023-10-19 19:46] LABS: Slide Review Reflex No
[2023-10-19 19:58] LABS: Chloride* 106 mmol/L (96-114); Potassium* 3.3 mmol/L (3.6-5.1); Sodium* 141 mmol/L (135-149)
[2023-10-19 20:01] LABS: Anion Gap 12 mEq/L (7-15); Blood Urea Nitrogen* 17 mg/dL (7-30); Calcium* 9.6 mg/dL (8.4-10.6); Carbon Dioxide* 23 mmol/L (20-32); Creatinine* 1.6 mg/dL (0.5-1.5); Est. Creatinine Clearance* 34.71; Estimated Glomerular Filt Rate 38 ml/min; Glucose* 109 mg/dL (60-115)
[2023-10-19 20:04] LABS: PCR FLU A Negative PCR FLU A (Negative); PCR FLU B Negative PCR FLU B (Negative); PCR RSV Negative PCR RSV (Negative); SARS PCR* Negative SARS-CoV-2 (Negative)
[2023-10-19 20:13] LABS: NT Pro B Type NatriureticPept* 4650 pg/mL
[2023-10-19 20:15] LABS: Troponin I* < 0.01 ng/mL (0.01-0.04)
--- NOTE | 2023-10-19 21:17 | CT_ITS ---
Patient: TARAH IRBY Facility:?[facility] Patient ID:?[id number] Site Patient ID:?[id number]. Site :?1970 Study:?CT-Chest PE W/ISOVUE 370 95CC-10/19/2023 10:15:01 PM Ordering Physician:WALTER Final Report: Indication: Short of breath, hypoxia, lung cancer, recent travel. Technique: CT pulmonary arteriography of the chest was performed following the administration of 95 mL Isovue 370. Comparison: Same day chest radiographs. PET-CT 09/13/2023 Findings: Lungs and pleura: Moderate bilateral pleural effusions. Mild interlobular septal thickening. Mosaic attenuation throughout both lungs. There is a spiculated nodule within the lingula measuring approximately 2.0 x 1.7 cm. There is associated pleural tethering. Mild atelectasis in the lower lobes. Calcified right upper lobe granuloma. Heart and great vessels: The heart is normal in size. No pericardial effusion. Aorta and pulmonary artery are normal in caliber. No evidence of right heart strain. Pulmonary artery opacification is adequate. Limited evaluation of the subsegmental pulmonary arteries due to patient motion. Within this limitation,no evidence of pulmonary embolism. Thyroid and mediastinum: Enlarged and heterogeneous left thyroid lobe, incompletely visualized. Enlarged subcarinal lymph node. Chest wall: Unremarkable. Visualized upper abdomen: Unremarkable. Bones: Sclerotic lesions within the right scapula, right clavicle, left humeral head, sternum and several vertebral bodies consistent with metastatic osseous involvement. Impression: 1. No evidence of pulmonary embolism given limitations of respiratory motion which obscures subsegmental pulmonary artery branches. 2. New moderate bilateral pleural effusions with mild interstitial edema and bilateral ground-glass opacities, which may represent atelectasis, air trapping or alveolar edema. 3. Spiculated nodule within the lingula measuring 2 cm consistent with history of lung cancer. 4. Sclerotic osseous metastases and enlarged subcarinal lymph node concerning for metastatic involvement. 5. Enlarged and heterogeneous left thyroid lobe, similar to prior PET-CT. Please note that all CT scans at this facility use dose modulation, iterative reconstruction, and/or weight-based dosing when appropriate to reduce radiation dose to as low as reasonably achievable. Dictated by Luz Maria Babb MD @ 10/19/2023 10:40:40 PM Signed by:?Luz Maria Babb MD @10/19/2023 10:40:40 PM (Electronic Signature)
[2023-10-19 21:53] VITALS: BP 144/67; PULSE 76; RESP 18; O2SAT 96
[2023-10-19 23:00] VITALS: RESP 20; O2SAT 96
[2023-10-19 23:25] VITALS: O2SAT 96
[2023-10-20] VITALS (14 sets, daily range): BP systolic 116–149; BP diastolic 58–80; PULSE 62–78; RESP 18–20; TEMP 36.5–37.3; O2SAT 90–98
--- NOTE | 2023-10-20 00:23 | P.IMHP_ITS ---
Hospitalist- H&P: HPI History of Present Illness Date Seen: 10/19/23 Chief complaint: shortness of breath, chest pain Narrative: Tita Mccabe is a 53 year old woman with stage IVB adenocarcinoma of left lung presents with the 1 day history of increasing dyspnea. Denies fevers, rig ors, diaphoresis. Recent trip to [place]. Has had dry, hacky, nonproductive cough. Notes bilateral lower extremity edema up to the thighs evolving over the course of the last 2 weeks. Was visiting a friend with dogs today and had some wheezing and dyspnea and thus presents to the emergency department for further assessment. Review of Systems 2 Status of ROS: Reports: 10 or more systems reviewed and unremarkable except as noted in History and below Narrative: No chest heaviness, pressure, tightness or pain. No syncope or near syncope. No nausea or vomiting. No palpitations. Episode of influenza, norovirus, severe dehydration, with acute kidney failure with tubular necrosis in August 2023. Creatinine still normalizing. Chemotherapy still on hold since this episode. CT PET scan recently demonstrates uniform resolution of all malignant masses. Close follow-up with Oncology and Nephrology at [facility], [place], [place]. Just saw oncologist yesterday. Lives home with her son, Brodie. 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 Designates son, Brodie Nielson, as her power of title attorney for health should that be required, . Requests full resuscitation in the event of cardiopulmonary demise. [facility] Medical History (Updated 10/20/23 @ 00:40 by Emil Lundberg MD) Essential hypertension ?I10 - Essential (primary) hypertension (ICD-10) Generalized anxiety disorder ?F41.1 - Generalized anxiety disorder (ICD-10) Obstructive sleep apnea of adult ?G47.33 - Obstructive sleep apnea (adult) (pediatric) (ICD-10) Diabetes mellitus type 2, controlled ?E11.9 - Type 2 diabetes mellitus without complications (ICD-10) Secondary malignant neoplasm of brain ?C79.31 - Secondary malignant neoplasm of brain (ICD-10) Secondary malignant neoplasm of bone ?C79.51 - Secondary malignant neoplasm of bone (ICD-10) Acute kidney failure with tubular necrosis ?N17.0 - Acute kidney failure with tubular necrosis (ICD-10) Anemia ?D64.9 - Anemia, unspecified (ICD-10) Adenocarcinoma of left lung, stage 4 ?C34.92 - Malignant neoplasm of unspecified part of left bronchus or lung ( ICD-10) Stage 4 lung cancer ?C34.90 - Malignant neoplasm of unspecified part of unspecified bronchus or lung (ICD-10) Social History Smoking Status: Never smoker Second hand tobacco smoke exposure: No How often do you have a drink containing alcohol: never How often do you have six or more drinks on one occasion: Never AUDIT-C Alcohol total score: 0 Non-prescribed substance use: denies use service: No Meds Home Medications and Allergies Home Medications Medication Instructions Recorded Confirmed Type allopurinol 100 mg tablet 200 mg PO DAILY 04/22/23 08/31/23 History metformin 1,000 mg tablet 1,000 mg PO BID 04/22/23 08/31/23 History metoprolol tartrate 50 mg tablet 50 mg PO BID 04/22/23 08/31/23 History paroxetine HCl 40 mg tablet 40 mg PO DAILY 04/22/23 08/31/23 History triamterene 37.5 1 cap PO QAM 04/22/23 08/31/23 History mg-hydrochlorothiazide 25 mg capsule atorvastatin 20 mg tablet 20 mg PO HS 05/10/23 08/31/23 History memantine 10 mg tablet 10 mg PO BID 08/21/23 08/31/23 History ondansetron 8 mg disintegrating 8 mg PO Q8H PRN 08/21/23 08/31/23 History tablet osimertinib 80 mg tablet (Tagrisso) 80 mg PO DAILY 08/21/23 08/31/23 History Home Medication Comments: Osimertinib is on hold. Allergies Allergy/AdvReac Type Severity Reaction Status Date / Time almond Allergy Verified 08/31/23 14:30 prochlorperazine AdvReac Hallucinati Verified 08/31/23 14:30 [From Compazine] ng Exam Narrative: Exam Narrative: Examined patient in the emergency department. Appears comfortable no acute distress. Oxygen at 2 liters/minute via nasal cannula. This is new for her. Saturations around 90% at rest. Vision and hearing are grossly normal. Alert and oriented to self, place, time, situation. Friendly, cooperative, articulate. Anxious. Obese body habitus. Tympanic membranes are normal. Midline nasal septum. Oropharynx benign. Tight oral aperture. Neck is full. Lungs are clear to auscultation save some decreased breath sounds left base more so than right. No wheezing or rhonchi. No rales. No CVA tenderness. Heart tones with regular rhythm, normal S1-S2, without murmur, gallop, or rub. PMI is not laterally displaced. Abdomen is obese with active bowel sounds, soft, nontender. No rebound or guarding. Cranial nerves 3-12 grossly normal. Moves all 4 extremities. No focal motor n eurologic deficits. Skin is warm, dry, intact. Patient has pedal edema, pretibial edema, as well as trace edema distal aspect of thighs bilaterally. Const: Vital Signs, click to edit/add: Vital Signs - 24 hr 10/19/23 18:50 10/19/23 21:53 10/19/23 23:00 Temperature 97.8 F Pulse Rate [Right Pulse Oximeter] 80 76 Respiratory Rate 18 18 20 Blood Pressure [Ri ght Upper Arm] 173/82 H 144/67 H Pulse Oximetry 94 96 96 Oxygen Delivery Me thod Room Air Nasal Cannula Nasal Cannula Oxygen Flow Rate 1 1 10/19/23 23:25 10/19/23 23:25 Temperature Pulse Rate [Right Pulse Oximeter] Respiratory Rate Blood Pressure [Ri ght Upper Arm] Pulse Oximetry 96 96 Oxygen Delivery Me thod Nasal Cannula Oxygen Flow Rate 1 Hospitalist - H&P: Result Labs Labs: Short CBC 10/19/23 Range/Units 19:37 WBC 6.66 (4.50-11.00) K/uL Hgb 8.8 L (12.0-16.0) gm/dL Hct 29.2 L (33.0-51.0) % Plt Count 239 (140-440) K/uL BMP 10/19/23 19:37 Sodium 141 Potassium 3.3 L Chloride 106 Carbon Dioxide 23 BUN 17 Creatinine 1.6 H Glucose 109 Calcium 9.6 Cardiac Enzymes 10/19/23 Range/Units 19:37 Troponin I < 0.01 L (0.01-0.04) ng/mL ECG Attestation: I personally reviewed and interpreted this ECG as follows: ECG interpretation date: 10/19/23 Interpretation: Normal sinus rhythm with non specific ST segment changes. Imaging CT scan - chest: Attestation: I have reviewed the pertinent imaging results. Radiologist's impression: Impression: 1. No evidence of pulmonary embolism given limitations of respiratory motion which obscures subsegmental pulmonary artery branches. 2. New moderate bilateral pleural effusions with mild interstitial edema and bilateral ground-glass opacities, which may represent atelectasis, air trapping or alveolar edema. 3. Spiculated nodule within the lingula measuring 2 cm consistent with history of lung cancer. 4. Sclerotic osseous metastases and enlarged subcarinal lymph node concerning for metastatic involvement. 5. Enlarged and heterogeneous left thyroid lobe, similar to prior PET-CT. Assessment and Plan Assessment and plan (1) Acute hypoxic respiratory failure: Problem comment: - Multifactorial: New onset heart failure, moderate left pleural effusion and small right pleural effusion, underlying stage IVB adenocarcinoma of left lung, obstructive sleep apnea, anemia. - oxygen supplementation and treat other underlying conditions, including heart failure Status: Acute (2) New onset of congestive heart failure: Problem comment: - will check echocardiogram - begin furosemide 40 mg IV on admission, and order a 2nd dose on 10/20/2023 - additional diuresis orders will need to be given thereafter - potassium supplementation and monitoring - low-sodium diet and nutritional consultation Status: Acute (3) Pleural effusion on left: Problem comment: - CT Chest 10/19/2023: Impression: 1. No evidence of pulmonary embolism given limitations of respiratory motion which obscures subsegmental pulmonary artery branches. 2. New moderate bilateral pleural effusions with mild interstitial edema and bilateral ground-glass opacities, which may represent atelectasis, air trapping or alveolar edema. 3. Spiculated nodule within the lingula measuring 2 cm consistent with history of lung cancer. 4. Sclerotic osseous metastases and enlarged subcarinal lymph node concerning for metastatic involvement. 5. Enlarged and heterogeneous left thyroid lobe, similar to prior PET-CT. - surgical consultation to consider possible diagnostic and therapeutic needle thoracentesis Status: Acute (4) Anemia: Problem comment: - new workup underway at [place], [place], as of 10/18/2023 - monitor while in hospital Status: Acute (5) Obstructive sleep apnea of adult: Problem comment: - utilizes CPAP at bedtime - ask patient to have her son bring her CPAP machine so she can use it while in the hospital Status: Acute (6) Adenocarcinoma of left lung, stage 4: Problem comment: - stage IVB (cT1c, cN0, cM1c) - followed and treated by Oncology at [place], [place] - chemotherapy, radiation therapy - last PET-CT scan from 09/2023 demonstrates great response at disease sites uniformly - chemotherapy on hold since late August when patient had influenza, norovirus, dehydration, acute kidney injury - awaiting normalization of creatinine. Status: Acute (7) Acute kidney failure with tubular necrosis: Problem comment: - August 2023, when patient had an episode of influenza, norovirus, and severe dehydration - followed with Nephrology at [place], [place], with creatinine is gradually normalizing albeit still not back to baseline - monitor renal function while in hospital Status: Acute Plan 1. Reviewed impression with patient. Answered her questions. 2. Dr. Rigoberto Moy, emergency Department, has initiated conversations with Oncology, [place], [place]. Consider additional dialogue if warranted hereafter. 3. Patient agreeable with above stated plans and recommendations. Total Time Spent Total Time Spent: 70 minutes
[2023-10-20] MEDS: FUROSEMIDE 10 MG/ML inj 40 MG IVP ×2 (00:24→07:47)
[2023-10-20] MEDS: POTASSIUM BICARB 25 MEQ EFFERVESCENT TAB 50 MEQ PO (00:24)
[2023-10-20] MEDS: ACETAMINOPHEN 325 MG TABLET 650 MG PO (00:24)
[2023-10-20] MEDS: ONDANSETRON ODT 4 MG TAB 8 MG PO (01:01)
[2023-10-20] MEDS: IPRAT-ALBUT 0.5-2.5 MG/3 ML NEB 1 NEB IH (02:30)
[2023-10-20 06:56] LABS: Hematocrit 25.5 % (33.0-51.0); Mean Corpuscular HGB Conc 30 gm/dL (32-36); Mean Corpuscular Hemoglobin 30 pg (26-34); Mean Corpuscular Volume 101 fL (80-100); Platelet Count* 182 K/uL (140-440); Red Blood Count 2.53 m/uL (4.00-5.20); White Blood Count* 4.66 K/uL (4.50-11.00)
[2023-10-20 06:57] LABS: HCO3 VBG 28 mmol/L (21-28); PCO2 VBG 47 mmHG (40-50); pH VBG 7.383 (7.32-7.43)
[2023-10-20 07:00] LABS: Hemoglobin* 7.6 gm/dL (12.0-16.0); Slide Review Reflex No
--- NOTE | 2023-10-20 07:07 | PC.NURSE ---
Pt arrived to floor at 2320. A&O pleasant and cooperative. VSS and on 2L of O2 to maintain sats >88%. Pt reports SOB with activity. LS wheezy overnight. PRN nebulizer given. Ind in room. Using commode at bedside due to increase SOB while up to the bathroom. Denies any pain.
[2023-10-20 07:12] LABS: Hemoglobin A1C* 5.8 % (0-5.6)
[2023-10-20 07:20] LABS: INR 1.08 (0.91-1.10); Prothrombin Time 14.6 Seconds
[2023-10-20 07:26] LABS: Chloride* 104 mmol/L (96-114); Sodium* 138 mmol/L (135-149)
[2023-10-20 07:27] LABS: Potassium* 3.5 mmol/L (3.6-5.1)
[2023-10-20 07:29] LABS: Alanine Aminotransferase* 13 U/L (4-35); Alkaline Phosphatase* 75 U/L (40-150); Anion Gap 8 mEq/L (7-15); Aspartate Amino Transferase* 21 U/L (12-35); Bilirubin Total* 0.5 mg/dL (0.1-1.5); Blood Urea Nitrogen* 19 mg/dL (7-30); Carbon Dioxide* 26 mmol/L (20-32); Creatinine* 1.5 mg/dL (0.5-1.5); Est. Creatinine Clearance* 37.02; Estimated Glomerular Filt Rate 41 ml/min; Glucose* 132 mg/dL (60-115); Phosphorus* 5.5 mg/dL (2.5-4.5); Total Protein* 5.7 g/dL (6.0-8.3)
[2023-10-20 07:30] LABS: Calcium* 9.2 mg/dL (8.4-10.6); Magnesium* 1.8 mg/dL (1.5-2.6)
[2023-10-20 07:32] LABS: C Reactive Protein* 1.2 mg/dL (0.5-1.0)
[2023-10-20 07:41] LABS: Procalcitonin* 0.08 ng/mL (<0.50)
[2023-10-20] MEDS: POTASSIUM CHLORIDE 10 MEQ CAPSULE ER 20 MEQ PO ×3 (07:47→17:43)
[2023-10-20 07:49] LABS: NT Pro B Type NatriureticPept* 5580 pg/mL
--- NOTE | 2023-10-20 08:13 | P.IMPN_ITS ---
Progress Note: A&P Assessment and plan (1) Acute hypoxic respiratory failure: Problem details: - Multifactorial: new CHF, bilateral pleural effusions, underlying stage IVB adenocarcinoma of left lung, obstructive sleep apnea, anemia - oxygen supplementation and treat other underlying conditions, including concern for heart failure given pleural effusions - diuresing well on hospital day 1, reassuring TTE Status: Acute (2) New onset of congestive heart failure: Problem details: - begin furosemide 40 mg IV on admission, and order a 2nd dose on 10/20/2023 - received a 3rd dose of IV furosemide after blood transfusion - potassium supplementation and monitoring - low-sodium diet and nutritional consultation Status: Acute (3) Pleural effusion on left: Problem details: - CT Chest 10/19/2023: Impression: 1. No evidence of pulmonary embolism given limitations of respiratory motion which obscures subsegmental pulmonary artery branches. 2. New moderate bilateral pleural effusions with mild interstitial edema and bilateral ground-glass opacities, which may represent atelectasis, air trapping or alveolar edema. 3. Spiculated nodule within the lingula measuring 2 cm consistent with history of lung cancer. 4. Sclerotic osseous metastases and enlarged subcarinal lymph node concerning for metastatic involvement. 5. Enlarged and heterogeneous left thyroid lobe, similar to prior PET-CT. - surgical consultation: discussed with Dr. Womack of General surgery on 10/19. - given low-dose oxygen requirement, reassuring TTE, and successful diuresis: continue medical management, she will formally see patient in consultation tomorrow Status: Acute (4) Anemia: Problem details: - new workup underway at [place], [place], as of 10/18/2023 - monitor while in hospital - Hgb 7.6 on 10/19; after risk benefit discussion, she is amenable to transfusion of 1 U PRBCs Status: Acute (5) Obstructive sleep apnea of adult: Problem details: - utilizes CPAP at bedtime Status: Acute (6) Adenocarcinoma of left lung, stage 4: Problem details: - stage IVB (cT1c, cN0, cM1c) - followed and treated by Oncology at [place], [place] - chemotherapy, radiation therapy - last PET-CT scan from 09/2023 demonstrates great response at disease sites uniformly - chemotherapy on hold since late August when patient had influenza, norovirus, dehydration, acute kidney injury - awaiting normalization of creatinine Status: Acute (7) Acute kidney failure with tubular necrosis: Problem details: - August 2023, when patient had an episode of influenza, norovirus, and severe dehydration - followed with Nephrology at [facility], [place], [place], with creatinine is gradually normalizing albeit still not back to baseline - monitor renal function while in hospital Status: Acute Plan - per above - SCDs, Teds, Ambulation for ppx Subjective Date Seen: 10/20/23 Interval history: Tita is a very pleasant [age]-year-old female who was diagnosed with metastatic adenocarcinoma of the lung last fall and is undergoing treatment at the [facility], who presented to the hospital with dyspnea. She was found to have small bilateral pleural effusions and anemia (recently diagnosed at [place]). Overnight, she received furosemide and has diuresed well. She continues to require supplemental oxygen. This morning, Tita is feeling better but still tired. She is amenable to 1 unit of PRBCs given persistent hemoglobin <8. TTE was performed and appears normal per initial tech read, formal cardiology read pending. Exam Narrative: Exam Narrative: GEN: Alert and oriented, laying comfortably in bed HEENT: Alopecia, EOMIs bilaterally, no scleral icterus CV: RRR, distant heart sounds, no concerning murmurs R: Decreased bibasilar breath sounds, no wheezing, no tachypnea Ext: wwp, no concerning edema Skin: No concerning skin lesions or rashes on exposed skin Neuro: Nonfocal Psych: Appropriate Const: Vital Signs, click to edit/add: Vital Signs - 24 hr 10/19/23 18:50 10/19/23 21:53 10/19/23 23:00 Temperature 97.8 F Pulse Rate Pulse Rate [Pulse Oximeter] Pulse Rate [Right Pulse Oximeter] 80 76 Respiratory Rate 18 18 20 Blood Pressure [Le ft Arm] Blood Pressure [Ri ght Upper Arm] 173/82 H 144/67 H Pulse Oximetry 94 96 96 Oxygen Delivery Me thod Room Air Nasal Cannula Nasal Cannula Oxygen Flow Rate 1 1 10/19/23 23:25 10/19/23 23:25 10/20/23 00:24 Temperature 99.2 F Pulse Rate Pulse Rate [Pulse Oximeter] Pulse Rate [Right Pulse Oximeter] Respiratory Rate Blood Pressure [Le ft Arm] Blood Pressure [Ri ght Upper Arm] Pulse Oximetry 96 96 Oxygen Delivery Me thod Nasal Cannula Oxygen Flow Rate 1 10/20/23 01:06 10/20/23 01:17 10/20/23 01:28 Temperature 99.2 F Pulse Rate 75 Pulse Rate [Pulse Oximeter] 77 Pulse Rate [Right Pulse Oximeter] Respiratory Rate 18 18 Blood Pressure [Le ft Arm] 149/80 H Blood Pressure [Ri ght Upper Arm] Pulse Oximetry 95 95 Oxygen Delivery Me thod Room Air Room Air Oxygen Flow Rate 10/20/23 03:00 10/20/23 07:00 10/20/23 07:00 Temperature 98.4 F Pulse Rate 78 Pulse Rate [Pulse Oximeter] 69 70 Pulse Rate [Right Pulse Oximeter] Respiratory Rate 20 20 Blood Pressure [Le ft Arm] 124/61 Blood Pressure [Ri ght Upper Arm] Pulse Oximetry 90 Oxygen Delivery Me thod Nasal Cannula Oxygen Flow Rate 2 10/20/23 07:00 10/20/23 07:00 Temperature 98.8 F Pulse Rate Pulse Rate [Pulse Oximeter] 70 Pulse Rate [Right Pulse Oximeter] Respiratory Rate 20 20 Blood Pressure [Le ft Arm] 131/58 L Blood Pressure [Ri ght Upper Arm] Pulse Oximetry 93 93 Oxygen Delivery Me thod Nasal Cannula Nasal Cannula Oxygen Flow Rate 2 2 Labs Labs: Laboratory Results - last 24 hr 10/19/23 10/19/23 10/20/23 19:18 19:37 06:11 WBC 6.66 4.66 RBC 2.93 L 2.53 L Hgb 8.8 L 7.6 L* Hct 29.2 L 25.5 L MCV 100 101 H MCH 30 30 MCHC 30 L 30 L RDW Coeff of Patricia 20.4 H Plt Count 239 182 Neut % (Auto) 78.5 H Lymph % (Auto) 10.8 L Butler % (Auto) 6.9 Eos % (Auto) 3.0 Baso % (Auto) 0.3 Neut # (Auto) 5.20 Lymph # (Auto) 0.70 L Butler # (Auto) 0.50 Eos # (Auto) 0.20 Baso # (Auto) 0.02 Abs Immat Gran (auto) 0.03 Imm/Tot Granulo (auto) 0.5 INR 1.08 VBG pH 7.383 VBG pCO2 47 VBG pO2 119.0 H VBG HCO3 28 Sodium 141 138 Potassium 3.3 L 3.5 L Chloride 106 104 Carbon Dioxide 23 26 Anion Gap 12 8 BUN 17 19 Creatinine 1.6 H 1.5 Estimated Creat Clear 34.71 37.02 Estimated GFR 38 41 Glucose 109 132 H Hemoglobin A1c 5.8 H Lactate 1.0 Calcium 9.6 9.2 Phosphorus 5.5 H Magnesium 1.8 Total Bilirubin 0.5 AST 21 ALT 13 Alkaline Phosphatase 75 Troponin I < 0.01 L C-Reactive Protein 1.2 H NT-Pro-B Natriuret Pep 4650 5580 Total Protein 5.7 L Albumin 3.0 L Procalcitonin 0.08 TSH 3.640 SARS-CoV-2 (PCR) Negative SARS-CoV-2 Influenza Type A (PCR) Negative PCR FLU A Influenza Type B (PCR) Negative PCR FLU B RSV (PCR) Negative PCR RSV
[2023-10-20] MEDS: allopurinoL 100 MG TABLET 200 MG PO (09:52)
[2023-10-20] MEDS: ACETAMINOPHEN 500 MG TABLET 1000 MG PO (09:52)
[2023-10-20] MEDS: METOPROLOL TARTRATE 50 MG TABLET PO ×2 (09:52→20:32)
[2023-10-20] MEDS: PARoxetine 20 MG TABLET 40 MG PO (09:52)
[2023-10-20] MEDS: MEMANTINE HCL 10 MG TABLET PO ×2 (09:53→20:32)
[2023-10-20] MEDS: SODIUM CHLORIDE 0.9 % (FLUSH) 10 ML SYRINGE 5 ML IVF ×3 (09:53→20:32)
[2023-10-20] MEDS: TAGRISSO 80 MG TABLET PO (12:15)
[2023-10-20] MEDS: FUROSEMIDE 10 MG/ML inj 20 MG IV (14:01)
--- NOTE | 2023-10-20 19:36 | PC.NURSE ---
End of shift: Patient alert and oriented x4. Patient VSS. Patient tolerating reg. diet. Patient on 2L NC. Patient up independently in room to bedside commode and BR. Patient received 1 unit PRBC and tolerated well. No transfusion reaction noted. Patient VSS after infusion. Patient on Chemo precaution. IV in R AC patent and SL.
[2023-10-20] MEDS: ATORVASTATIN 10 MG TABLET 20 MG PO (20:32)
[2023-10-21] VITALS (9 sets, daily range): BP systolic 106–140; BP diastolic 59–82; PULSE 57–69; RESP 14–20; TEMP 36.4–37.1; O2SAT 90–98; BMI 31.3
[2023-10-21] MEDS: IPRAT-ALBUT 0.5-2.5 MG/3 ML NEB 1 NEB IH (01:50)
[2023-10-21 06:14] LABS: Basophils Percent Auto 0.2 % (0.0-3.0); Eosinophils Percent Auto 3.4 % (0.0-7.0); Hematocrit 27.1 % (33.0-51.0); Hemoglobin* 8.5 gm/dL (12.0-16.0); Immature Granulocytes Pct Auto 0.2 %; Lymphocytes Percent Auto 14.5 % (20-44); Mean Corpuscular HGB Conc 31 gm/dL (32-36); Mean Corpuscular Hemoglobin 30 pg (26-34); Mean Corpuscular Volume 94 fL (80-100); Monocytes Percent Auto 11.9 % (0.0-11.0); Neutrophils Percent Auto 69.8 % (42.0-72.0); Platelet Count* 166 K/uL (140-440); RDW Coefficient of Variation % 20.4 % (11.5-15.5); Red Blood Count 2.87 m/uL (4.00-5.20); White Blood Count* 4.13 K/uL (4.50-11.00)
[2023-10-21 06:21] LABS: Chloride* 100 mmol/L (96-114)
[2023-10-21 06:22] LABS: Sodium* 137 mmol/L (135-149)
[2023-10-21 06:24] LABS: Alkaline Phosphatase* 78 U/L (40-150); Anion Gap 5 mEq/L (7-15); Aspartate Amino Transferase* 16 U/L (12-35); Bilirubin Total* 0.5 mg/dL (0.1-1.5); Blood Urea Nitrogen* 19 mg/dL (7-30); Carbon Dioxide* 32 mmol/L (20-32); Creatinine* 1.6 mg/dL (0.5-1.5); Est. Creatinine Clearance* 34.71; Estimated Glomerular Filt Rate 38 ml/min; Total Protein* 5.6 g/dL (6.0-8.3)
[2023-10-21 06:25] LABS: Alanine Aminotransferase* 12 U/L (4-35); Glucose* 126 mg/dL (60-115); Magnesium* 1.7 mg/dL (1.5-2.6)
--- NOTE | 2023-10-21 06:26 | PC.NURSE ---
19-: pleasant and cooperative. Indep in room. Chemo precautions in place. Pt remains on 2L O2, attempted to titrate to 1L, pt did not tolerate. LS clear/dim at beginning of shift. Pt c/o SOB and wheezing around 0145 (during this time pt was lying on her right side), with position changes, IS use, & prn neb?- pt stated relief and was able to fall back asleep. BG 98 at HS, pt stated she had fruit and yogurt for dinner and it wasn't enough, toast with peanut butter and jam was given after BG check.
[2023-10-21 06:28] LABS: Potassium* 2.9 mmol/L (3.6-5.1)
[2023-10-21 06:56] LABS: Slide Review Acceptable Review (Acceptable); Slide Review Reflex Yes
--- NOTE | 2023-10-21 08:00 | XR_ITS ---
Patient: TARAH IRBY Facility:?[facility] Patient ID:?[id number] Site Patient ID:?[id number]. Site :?[id number] Study:?XRay-Chest 1 VIEW PORTABLE-10/21/2023 9:51:29 AM Ordering Physician:EVARISTO Final Report: INDICATION: Follow-up COMPARISON: October 19, 2023 TECHNIQUE: Single-view study obtained portably October 21, 2023 FINDINGS: TUBES AND LINES: None. HEART AND MEDIASTINUM: The heart size is normal. The mediastinal contour appears normal for patient age. LUNGS AND PLEURAL SPACES: Diffuse interstitial abnormality has significantly worsened. This may represent edema. On review of the reports of prior studies, there are spiculated nodules felt suspicious for malignancy. None of those are clearly visible on this single-view portable study probably due to worsening interstitial abnormality. Probable left effusion. No pneumothorax OSSEOUS STRUCTURES: Age-appropriate appearance. No acute focal finding. IMPRESSION: 1. Diffuse interstitial abnormality has worsened and may represent edema. 2. Probable left effusion. 3. On review of prior studies, there are multiple abnormalities which may indicate malignancy. None of those are clearly visible on this study probably obscured by worsening interstitial abnormality. Dictated by Federico Keyes MD @ 10/21/2023 9:56:46 AM Signed by:?Federico Keyes MD @10/21/2023 9:56:46 AM (Electronic Signature)
[2023-10-21] MEDS: POTASSIUM CHLORIDE 10 MEQ CAPSULE ER 20 MEQ PO ×3 (08:17→19:04)
[2023-10-21] MEDS: POTASSIUM BICARB 25 MEQ EFFERVESCENT TAB 50 MEQ PO (08:17)
[2023-10-21] MEDS: METOPROLOL TARTRATE 50 MG TABLET PO ×2 (09:15→21:21)
[2023-10-21] MEDS: allopurinoL 100 MG TABLET 200 MG PO (09:15)
[2023-10-21] MEDS: SENNOSIDES 1 TAB TABLET PO (09:15)
[2023-10-21] MEDS: MAGNESIUM IV 2 GM/50 ML PIGGYBACK IVPB (09:15)
[2023-10-21] MEDS: MEMANTINE HCL 10 MG TABLET PO ×2 (09:15→21:21)
[2023-10-21] MEDS: PARoxetine 20 MG TABLET 40 MG PO (09:15)
[2023-10-21] MEDS: SODIUM CHLORIDE 0.9 % (FLUSH) 10 ML SYRINGE 5 ML IVF ×3 (09:17→21:21)
[2023-10-21] MEDS: TAGRISSO 80 MG TABLET PO (09:33)
--- NOTE | 2023-10-21 10:24 | PM.IMPN1 ---
Progress Note: A&P Assessment and plan (1) Acute hypoxic respiratory failure: Problem details: - Multifactorial: new CHF, bilateral pleural effusions, underlying stage IVB adenocarcinoma of left lung, obstructive sleep apnea, anemia - oxygen supplementation and treat other underlying conditions, including concern for heart failure given pleural effusions - diuresing well, reassuring TTE Status: Acute (2) New onset of congestive heart failure: Problem details: - concern for this on admission, reassuring TTE (results below): - Received IV Furosemide x3 on hospital day 1, transition to oral on 10/20 with potassium supplementation - potassium supplementation and monitoring - low-sodium diet and nutritional consultation Final Impressions: 1. Normal LV size, normal wall thickness, normal global systolic function with an estimated EF of 60 - 65%. 2. The aortic valve is sclerotic and trileaflet, no stenosis and no regurgitation. 3. The mitral valve is sclerotic, mild mitral regurgitation. 4. Left pleural effusion noted. Status: Acute (3) Pleural effusion on left: Problem details: - CT Chest 10/19/2023: Impression: 1. No evidence of pulmonary embolism given limitations of respiratory motion which obscures subsegmental pulmonary artery branches. 2. New moderate bilateral pleural effusions with mild interstitial edema and bilateral ground-glass opacities, which may represent atelectasis, air trapping or alveolar edema. 3. Spiculated nodule within the lingula measuring 2 cm consistent with history of lung cancer. 4. Sclerotic osseous metastases and enlarged subcarinal lymph node concerning for metastatic involvement. 5. Enlarged and heterogeneous left thyroid lobe, similar to prior PET-CT. - surgical consultation: discussed with Dr. Womack of General surgery on 10/19. - given low-dose oxygen requirement, reassuring TTE, and successful diuresis: continue medical management, she will formally see patient in consultation tomorrow Status: Acute (4) Anemia: Problem details: - new workup underway at [place], [place], as of 10/18/2023 - monitor while in hospital - Hgb 7.6 on 10/19; after risk benefit discussion, she is amenable to transfusion of 1 U PRBCs Status: Acute (5) Obstructive sleep apnea of adult: Problem details: - utilizes CPAP at bedtime Status: Acute (6) Adenocarcinoma of left lung, stage 4: Problem details: - stage IVB (cT1c, cN0, cM1c) - followed and treated by Oncology at [place], [place] - chemotherapy, radiation therapy - last PET-CT scan from 09/2023 demonstrates great response at disease sites uniformly - chemotherapy on hold since late August when patient had influenza, norovirus, dehydration, acute kidney injury - awaiting normalization of creatinine Status: Acute (7) Acute kidney failure with tubular necrosis: Problem details: - August 2023, when patient had an episode of influenza, norovirus, and severe dehydration (peak creatinine of 5.6) - followed with Nephrology at [place], [place], with creatinine continuing to improve - monitor renal function while in hospital Status: Acute (8) Essential hypertension: Problem details: - holding Triamterene-HCTZ while on Lasix, currently has age appropriate BP control Status: Acute Plan - per above - home when able to tolerate RA with ambulation - renally dosed Lovenox for ppx Subjective Date Seen: 10/21/23 Interval history: Tita is a 53 yo woman with a history of metastatic adenocarcinoma of the lung (diagnosed 05/06), who presented to the hospital with fatigue and dyspnea. She was found to have bilateral pleural effusions (L>R) and anemia, was transfused 1U of PRBCs on 10/19 for Hgb of 7.6; Hemoglobin is 8.5 today. She is feeling better today, intermittently tolerates RA while resting. Requiring supplemental oxygen with ambulation. Reassuring TTE. Potassium is low today, we are supplementing. She has diuresed very well since admission. Exam Narrative: Exam Narrative: GEN: Alert and oriented, interactive HEENT: Alopecia, EOMIs bilaterally, no scleral icterus CV: RRR, no concerning murmurs R: Decreased bibasilar breath sounds on L, no wheezing, no tachypnea Skin: No concerning skin lesions or rashes on exposed skin Neuro: Nonfocal Psych: Appropriate Const: Vital Signs, click to edit/add: Vital Signs - 24 hr 10/20/23 10:47 10/20/23 10:55 10/20/23 11:06 Temperature 98.9 F 98.9 F 99.0 F Pulse Rate 66 63 Pulse Rate [Pulse Oximeter] 66 Respiratory Rate 20 20 20 Blood Pressure 126/69 127/63 Blood Pressure [Le ft Arm] 126/69 Pulse Oximetry 95 95 97 Oxygen Delivery Me thod Nasal Cannula Oxygen Flow Rate 2 04/07/24 11:51 10/20/23 13:57 10/20/23 15:00 Temperature 98.9 F 97.7 F Pulse Rate 66 67 Pulse Rate [Pulse Oximeter] 66 Respiratory Rate 20 18 18 Blood Pressure 126/69 118/62 Blood Pressure [Le ft Arm] Pulse Oximetry 95 98 Oxygen Delivery Me thod Oxygen Flow Rate 10/20/23 15:00 10/20/23 15:00 10/20/23 20:15 Temperature 97.7 F 98.2 F Pulse Rate Pulse Rate [Pulse Oximeter] 66 62 Respiratory Rate 18 18 18 Blood Pressure Blood Pressure [Le ft Arm] 126/69 116/63 Pulse Oximetry 98 98 97 Oxygen Delivery Me thod Nasal Cannula Nasal Cannula Nasal Cannula Oxygen Flow Rate 2 2 2 10/20/23 23:00 10/20/23 23:00 10/20/23 23:00 Temperature Pulse Rate Pulse Rate [Pulse Oximeter] 64 Respiratory Rate 18 18 18 Blood Pressure Blood Pressure [Le ft Arm] Pulse Oximetry 96 96 Oxygen Delivery Me thod Nasal Cannula Nasal Cannula Oxygen Flow Rate 1.5 1.5 10/21/23 01:28 10/21/23 01:55 10/21/23 07:21 Temperature 98.4 F Pulse Rate Pulse Rate [Pulse Oximeter] 62 68 Respiratory Rate 18 20 14 Blood Pressure Blood Pressure [Le ft Arm] 106/59 L 126/73 Pulse Oximetry 90 93 Oxygen Delivery Me thod Nasal Cannula Room Air Oxygen Flow Rate 1 10/21/23 09:00 Temperature Pulse Rate Pulse Rate [Pulse Oximeter] Respiratory Rate 14 Blood Pressure Blood Pressure [Le ft Arm] Pulse Oximetry 93 Oxygen Delivery Me thod Nasal Cannula Oxygen Flow Rate 1 Labs Labs: Laboratory Results - last 24 hr 10/20/23 10/21/23 08:08 05:55 WBC 4.13 L RBC 2.87 L Hgb 8.5 L Hct 27.1 L MCV 94 MCH 30 MCHC 31 L RDW Coeff of Patricia 20.4 H Plt Count 166 Neut % (Auto) 69.8 Lymph % (Auto) 14.5 L [place] % (Auto) 11.9 H Eos % (Auto) 3.4 Baso % (Auto) 0.2 Neut # (Auto) 2.90 Lymph # (Auto) 0.60 L [place] # (Auto) 0.50 Eos # (Auto) 0.10 Baso # (Auto) 0.00 Abs Immat Gran (auto) 0.00 Imm/Tot Granulo (auto) 0.2 Diff Slide Review Acceptable Review Sodium 137 Potassium 2.9 L* Chloride 100 Carbon Dioxide 32 Anion Gap 5 L BUN 19 Creatinine 1.6 H Estimated Creat Clear 34.71 Estimated GFR 38 Glucose 126 H Calcium 9.0 Magnesium 1.7 Total Bilirubin 0.5 AST 16 ALT 12 Alkaline Phosphatase 78 Total Protein 5.6 L Albumin 3.0 L Blood Type O Negative Antibody Screen NEGATIVE Crossmatch (AHG) See Detail
[2023-10-21] MEDS: POTASSIUM CHLORIDE 10 MEQ, LIDOCAINE 1 % 1 ML in 0.9 % SODIUM CHLORIDE 100 ml 100 ML 106 MEQ IVPB ×3 (11:05→14:09)
[2023-10-21] MEDS: 0.9 % SODIUM CHLORIDE 250 ml IV (14:09)
[2023-10-21 16:33] LABS: Potassium* 3.8 mmol/L (3.6-5.1)
[2023-10-21] MEDS: FUROSEMIDE 40 MG TABLET PO (16:56)
--- NOTE | 2023-10-21 17:03 | PC.NURSE ---
Shift Summary: patient pleasant and cooperative. Up in room independently. Vitals stable and WNL. C/o SOB at rest this morning, without o2 at the time and o2 sat 90-93%. o2 sat dropped this afternoon and was placed back on 1L/NC. Lung sounds diminished in bases. Denies pain. Received x3 IV potassium, see MAR, labs drawn this evening and potassium within normal range.
[2023-10-21] MEDS: ATORVASTATIN 10 MG TABLET 20 MG PO (21:21)
[2023-10-22 03:00] VITALS: BP 124/74; PULSE 67; RESP 16; TEMP 36.8; O2SAT 94
--- NOTE | 2023-10-22 05:37 | PC.NURSE ---
Patient pleasant, alert and oriented. Continues on chemo precautions. Denied pain or SOB. O2 sate dropped to 88% on 1 LPM. O2 was increased to 1.5 LPM and O2 sats increased to 89-94%. Refused SCDs. Teds applied. Used bedside commode during NOC. ?
[2023-10-22 06:53] LABS: Basophils Percent Auto 0.5 % (0.0-3.0); Eosinophils Percent Auto 3.2 % (0.0-7.0); Hematocrit 28.7 % (33.0-51.0); Hemoglobin* 8.8 gm/dL (12.0-16.0); Immature Granulocytes Pct Auto 0.2 %; Lymphocytes Percent Auto 13.2 % (20-44); Mean Corpuscular HGB Conc 31 gm/dL (32-36); Mean Corpuscular Hemoglobin 30 pg (26-34); Mean Corpuscular Volume 96 fL (80-100); Monocytes Percent Auto 11.6 % (0.0-11.0); Neutrophils Percent Auto 71.3 % (42.0-72.0); Platelet Count* 188 K/uL (140-440); RDW Coefficient of Variation % 19.8 % (11.5-15.5); Red Blood Count 2.98 m/uL (4.00-5.20); White Blood Count* 4.38 K/uL (4.50-11.00)
[2023-10-22 06:54] LABS: Slide Review Reflex No
[2023-10-22 07:05] LABS: Chloride* 100 mmol/L (96-114); Sodium* 137 mmol/L (135-149)
[2023-10-22 07:06] LABS: Potassium* 3.5 mmol/L (3.6-5.1)
[2023-10-22 07:08] LABS: Creatinine* 1.5 mg/dL (0.5-1.5); Est. Creatinine Clearance* 37.02; Estimated Glomerular Filt Rate 41 ml/min
[2023-10-22 07:09] LABS: Anion Gap 5 mEq/L (7-15); Blood Urea Nitrogen* 19 mg/dL (7-30); Calcium* 9.2 mg/dL (8.4-10.6); Carbon Dioxide* 32 mmol/L (20-32); Glucose* 135 mg/dL (60-115)
[2023-10-22 08:16] VITALS: BP 135/78; PULSE 62; RESP 24; TEMP 36.6; O2SAT 91
[2023-10-22] MEDS: FUROSEMIDE 40 MG TABLET PO ×2 (08:20→14:20)
[2023-10-22] MEDS: POTASSIUM CHLORIDE 10 MEQ CAPSULE ER 20 MEQ PO ×3 (08:20→18:26)
[2023-10-22] MEDS: allopurinoL 100 MG TABLET 200 MG PO (09:20)
[2023-10-22] MEDS: PARoxetine 20 MG TABLET 40 MG PO (09:20)
[2023-10-22] MEDS: MEMANTINE HCL 10 MG TABLET PO ×2 (09:20→21:06)
[2023-10-22] MEDS: SENNOSIDES 1 TAB TABLET PO (09:20)
[2023-10-22] MEDS: METOPROLOL TARTRATE 50 MG TABLET PO ×2 (09:20→21:06)
[2023-10-22] MEDS: SODIUM CHLORIDE 0.9 % (FLUSH) 10 ML SYRINGE 5 ML IVF ×2 (09:21→21:07)
[2023-10-22] MEDS: TAGRISSO 80 MG TABLET PO (09:21)
[2023-10-22] MEDS: EMPAGLIFLOZIN 10 MG TABLET PO (10:51)
[2023-10-22 11:00] VITALS: BP 133/79; PULSE 66; RESP 14; TEMP 36.8; O2SAT 92
--- NOTE | 2023-10-22 11:20 | P.IMPN_ITS ---
Progress Note: A&P Assessment and plan (1) Acute hypoxic respiratory failure: Problem details: - Multifactorial: new CHF appears to be the primary cause, bilateral pleural effusions, underlying stage IVB adenocarcinoma of left lung, obstructive sleep apnea also present Continue diuresis and management of fluid and electrolytes and renal function. Goal is to wean off of supplemental oxygen Status: Acute (2) New onset of congestive heart failure: Problem details: - concern for this on admission, reassuring TTE (results below): - Received IV Furosemide x3 on hospital day 1, transition to oral on 10/20 with potassium supplementation - potassium supplementation and monitoring - low-sodium diet and nutritional consultation Add Jardiance. Final Impressions: 1. Normal LV size, normal wall thickness, normal global systolic function with an estimated EF of 60 - 65%. 2. The aortic valve is sclerotic and trileaflet, no stenosis and no regurgitation. 3. The mitral valve is sclerotic, mild mitral regurgitation. 4. Left pleural effusion noted. Status: Acute (3) Pleural effusion on left: Problem details: - CT Chest 10/19/2023: Impression: 1. No evidence of pulmonary embolism given limitations of respiratory motion which obscures subsegmental pulmonary artery branches. 2. New moderate bilateral pleural effusions with mild interstitial edema and bilateral ground-glass opacities, which may represent atelectasis, air trapping or alveolar edema. Clinically I favor heart failure over other causes of pulmonary edema and ground-glass opacities 3. Spiculated nodule within the lingula measuring 2 cm consistent with history of lung cancer. 4. Sclerotic osseous metastases and enlarged subcarinal lymph node concerning for metastatic involvement. 5. Enlarged and heterogeneous left thyroid lobe, similar to prior PET-CT. Status: Acute (4) Anemia: Problem details: - new workup underway at [place], [place], as of 10/18/2023 - monitor while in hospital - Hgb 7.6 on 10/19; after risk benefit discussion, she is amenable to transfusion of 1 U PRBCs Status: Acute (5) Obstructive sleep apnea of adult: Problem details: - utilizes CPAP at bedtime Status: Acute (6) Adenocarcinoma of left lung, stage 4: Problem details: - stage IVB (cT1c, cN0, cM1c) - followed and treated by Oncology at [place], [place] - chemotherapy, radiation therapy - last PET-CT scan from 09/2023 demonstrates great response at disease sites uniformly - chemotherapy on hold since late August when patient had influenza, norovirus, dehydration, acute kidney injury - awaiting normalization of c reatinine Status: Acute (7) Acute kidney failure with tubular necrosis: Problem details: - August 2023, when patient had an episode of influenza, norovirus, and severe dehydration (peak creatinine of 5.6) - followed with Nephrology at [place], [place], with creatinine continuing to improve - monitor renal function while in hospital Status: Acute (8) Essential hypertension: Problem details: Switch Dyazide to furosemide. Continue metoprolol. Status: Acute Plan Continue patient in hospital for additional diuresis, monitoring vital signs, monitoring respiratory status and monitoring electrolytes. Time Spent With Patient Total time spent: 60 minutes, 40 minutes in coordination of care, reviewing outside records and discussing with patient other providers ongoing evaluation management of hypoxia and heart failure Subjective Date Seen: 10/22/23 Interval history: Tita is a 53 yo woman with a history of metastatic adenocarcinoma of the lung (diagnosed 05/06), who presented to the hospital with fatigue and dyspnea and bilateral lower extremity edema. CT chest showed no large PE. Interstitial edema and bilateral ground-glass opacities noted. She was found to have bilateral pleural effusions (L>R) and anemia, was transfused 1U of PRBCs on 10/19 for Hgb of 7.6; Hemoglobin is 8.5 today. Patient also has obstructive sleep apnea. Patient reports that her adenocarcinoma of the left lung is responding well to treatment. Initial impression was heart failure with preserved ejection fraction. She was treated with diuresis. She reports feeling quite a bit better though is still remaining on supplemental oxygen to maintain her O2 sats in the 90s. Her edema has resolved. Exam Narrative: Exam Narrative: She is alert appears in no distress. Speech is normal. Breathing is unlabored on 1.5 L per nasal cannula. Oropharynx with small airway. Respirations are clear to auscultation except for a rare basilar crackle. No marked wheezing. Cardiovascular: S1, S2, regular rate and rhythm. No murmur gallop or rub. Abdomen: Bowel sounds active. Abdomen is soft without tenderness or mass. Extremities with no edema. Intact peripheral pulses. Const: Vital Signs, click to edit/add: Vital Signs - 24 hr 10/21/23 15:14 10/21/23 15:16 10/21/23 19:00 Temperature 98 F 98.7 F Pulse Rate [Pulse Oximeter] 69 69 Respiratory Rate 18 18 18 Blood Pressure [Le ft Arm] 139/63 138/82 Blood Pressure [Ri ght Arm] Pulse Oximetry 91 98 92 Oxygen Delivery Me thod Nasal Cannula Nasal Cannula Nasal Cannula Oxygen Flow Rate 1 1 1 10/21/23 23:00 10/21/23 23:00 10/22/23 03:00 Temperature 98.2 F 98.2 F Pulse Rate [Pulse Oximeter] 65 67 Respiratory Rate 16 16 16 Blood Pressure [Le ft Arm] Blood Pressure [Ri ght Arm] 127/61 124/74 Pulse Oximetry 97 97 94 Oxygen Delivery Me thod Nasal Cannula Room Air Nasal Cannula Oxygen Flow Rate 1 1 1.5 10/22/23 08:16 10/22/23 08:16 10/22/23 08:16 Temperature 98 F Pulse Rate [Pulse Oximeter] 62 62 Respiratory Rate 24 24 24 Blood Pressure [Le ft Arm] Blood Pressure [Ri ght Arm] 135/78 Pulse Oximetry 91 91 Oxygen Delivery Me thod Nasal Cannula Nasal Cannula Oxygen Flow Rate 1.5 1.5 Documenting provider has reviewed patient's vital signs: yes Labs Labs: Laboratory Results - last 24 hr 10/21/23 10/22/23 16:16 06:20 WBC 4.38 L RBC 2.98 L Hgb 8.8 L Hct 28.7 L MCV 96 MCH 30 MCHC 31 L RDW Coeff of Patricia 19.8 H Plt Count 188 Neut % (Auto) 71.3 Lymph % (Auto) 13.2 L [place] % (Auto) 11.6 H Eos % (Auto) 3.2 Baso % (Auto) 0.5 Neut # (Auto) 3.10 Lymph # (Auto) 0.60 L [place] # (Auto) 0.50 Eos # (Auto) 0.10 Baso # (Auto) 0.00 Abs Immat Gran (auto) 0.00 Imm/Tot Granulo (auto) 0.2 Sodium 137 Potassium 3.8 3.5 L Chloride 100 Carbon Dioxide 32 Anion Gap 5 L BUN 19 Creatinine 1.5 Estimated Creat Clear 37.02 Estimated GFR 41 Glucose 135 H Calcium 9.2
[2023-10-22] MEDS: POTASSIUM CHLORIDE 10 MEQ CAPSULE ER 40 MEQ PO (11:30)
--- NOTE | 2023-10-22 15:40 | PC.NURSE ---
End of Shift: Patient pleasant and cooperative. Patient vitally stable, lungs with fine crackles and diminished, BS WNL, IV intact and SL. Patient on 1 L nasal cannula with sats in the low 90s, Patient denies pain and independent in room. Patient tolerating regular diet, urinating, and had 1 BM. Patient naps on and off, but has also been up in the chair.
[2023-10-22 16:18] VITALS: BP 138/81; PULSE 67; RESP 16; TEMP 36.8; O2SAT 97
--- NOTE | 2023-10-22 18:57 | PC.NURSE ---
Nursing Care Hours: [id number] Pt this shift calm and cooperative, alert and oriented. No c/o pain. No wheezing or SOB noted. VSS. Pt reported BM x2 today. BS 82, insulin held.
[2023-10-22 19:00] VITALS: BP 138/70; PULSE 69; RESP 18; TEMP 37.1; O2SAT 95
[2023-10-22] MEDS: ATORVASTATIN 10 MG TABLET 20 MG PO (21:06)
[2023-10-22] MEDS: ENOXAPARIN 30 MG/0.3ML INJ SUBCUT (21:07)
[2023-10-22 23:00] VITALS: PULSE 69; RESP 18; O2SAT 95
[2023-10-23 03:00] VITALS: BP 118/71; PULSE 68; RESP 15; TEMP 36.4; O2SAT 96
--- NOTE | 2023-10-23 05:41 | PC.NURSE ---
End of shift [id number]: Pleasant and cooperative with cares. Patient reports difficulty sleeping the last 3 nights, hospitalist updated, patient declined any medications for sleeping at this time but will let staff know if she feels like she needs something. Oxygen at 1L per nasal cannula, patient maintained O2 sats >90% throughout the shift. Denies any shortness of breath, pain or dyspnea.
[2023-10-23 08:30] VITALS: PULSE 66; RESP 20; O2SAT 92
[2023-10-23 08:35] VITALS: BP 127/74; PULSE 66; RESP 20; TEMP 37.2; O2SAT 92
[2023-10-23] MEDS: MEMANTINE HCL 10 MG TABLET PO (08:41)
[2023-10-23] MEDS: FUROSEMIDE 40 MG TABLET PO ×2 (08:41→13:53)
[2023-10-23] MEDS: allopurinoL 100 MG TABLET 200 MG PO (08:41)
[2023-10-23] MEDS: PARoxetine 20 MG TABLET 40 MG PO (08:41)
[2023-10-23] MEDS: EMPAGLIFLOZIN 10 MG TABLET PO (08:42)
[2023-10-23] MEDS: TAGRISSO 80 MG TABLET PO (08:42)
[2023-10-23] MEDS: SENNOSIDES 1 TAB TABLET PO (08:42)
[2023-10-23] MEDS: SODIUM CHLORIDE 0.9 % (FLUSH) 10 ML SYRINGE 5 ML IVF (08:42)
[2023-10-23] MEDS: METOPROLOL TARTRATE 50 MG TABLET PO (08:42)
[2023-10-23 11:32] VITALS: BP 133/77; PULSE 66; RESP 12; TEMP 37.2; O2SAT 92
[2023-10-23] MEDS: POTASSIUM CHLORIDE 10 MEQ CAPSULE ER 30 MEQ PO ×2 (11:36→18:25)
--- NOTE | 2023-10-23 12:40 | P.DS_ITS ---
DS: Providers Provider Date Seen: 10/23/23 Date of admission: 10/19/23 23:53 Primary care physician: Not a Local Provider Admitting Clinician: Emil Lundberg MD Consults: 10/19/23 23:53 Consult to Physician [CONS] Routine Comment: hypoxia; mod L pleu effusion, ? thoracentesis Consulting Provider: Aaliyah Womack Has provider been notified: No Attending Physician on discharge: Kenneth Nix MD Date of Discharge: 10/23/23 DS: Diagnosis Discharge Diagnosis (1) New onset of congestive heart failure: Status: Acute Problem details: Heart failure with preserved ejection fraction is the cause of her current hypoxic respiratory failure. Clinically improved with increased diuresis with furosemide.. Final Impressions: 1. Normal LV size, normal wall thickness, normal global systolic function with an estimated EF of 60 - 65%. 2. The aortic valve is sclerotic and trileaflet, no stenosis and no regurgitation. 3. The mitral valve is sclerotic, mild mitral regurgitation. 4. Left pleural effusion noted. At discharge she had furosemide 80 mg daily plus potassium 60 mEq daily plus J ardiance 10 mg daily to treat her heart failure. Outpatient instructions include daily weight monitoring, monitoring for dyspnea and edema, low-sodium diet, medication compliance. Outpatient followup next week to recheck basic metabolic panel and CBC. Recommend this be done locally in addition to ongoing care through [facility] in [place] for oncology (2) Acute hypoxic respiratory failure: Status: Acute Problem details: - Multifactorial: new CHF appears to be the primary cause, bilateral pleural effusions, underlying stage IVB adenocarcinoma of left lung, obstructive sleep apnea also present Continue diuresis and management of fluid and electrolytes and renal function. Now weaned off of oxygen during the day. Hypoxic at night while she is off CPAP (3) Anemia: Status: Acute Problem details: - new workup underway at [place], [place], as of 10/18/2023 Transfused 1 unit of packed red cells. Hemoglobin stable at 8.8 on discharge. No active bleeding. (4) Obstructive sleep apnea of adult: Status: Acute Problem details: - utilizes CPAP at bedtime at home (5) Adenocarcinoma of left lung, stage 4: Status: Acute Problem details: - stage IVB (cT1c, cN0, cM1c) - followed and treated by Oncology at [place], [place] - chemotherapy, radiation therapy - last PET-CT scan from 09/2023 demonstrates great response at disease sites uniformly - chemotherapy on hold since late August when patient had influenza, norovirus, dehydration, acute kidney injury - awaiting normalization of creatinine (6) Hypokalemia: Status: Acute Problem details: Requiring moderately high doses of potassium with change in diuretic (7) Diabetes mellitus type 2, controlled: Status: Acute Problem details: Due to impaired renal function her metformin dose was reduced to 1000 mg daily and Jardiance was added DS: Summary Hospital Course Hospital Course: Tita is a 53 yo woman with a history of metastatic adenocarcinoma of the lung (diagnosed 05/06), who presented to the hospital with fatigue and dyspnea and bilateral lower extremity edema. CT chest showed no large PE. Interstitial edema and bilateral ground-glass opacities noted. She was found to have bilateral pleural effusions (L>R) and anemia, was transfused 1U of PRBCs on 10/19 for Hgb of 7.6; Hemoglobin is 8.5 today. Patient also has obstructive sleep apnea. Patient reports that her adenocarcinoma of the left lung is responding well to treatment. Initial impression was heart failure with preserved ejection fraction. She was treated with diuresis. She reports feeling quite a bit better though is still remaining on supplemental oxygen to maintain her O2 sats in the 90s. Her edema has resolved. She did not bring her CPAP to the hospital. She has been hypoxic at night but today is in the low to mid 90s on room air. She has no dyspnea. Heart failure is treated furosemide 80 mg daily for the past 2 days. With this her clinical signs and symptoms of heart failure have resolved. She is requiring potassium 60 mEq a day to maintain her serum potassium. Status at Discharge Functional status at discharge: independent ambulation Overall status at discharge: patient is progressing back to baseline Time Spent with Patient Time attestation: Total time spent providing and/or coordinating discharge services: 40 mins. Time spent: Greater than 30 minutes Exam Const: Vital Signs, click to edit/add: Vital Signs - 24 hr 10/22/23 16:18 10/22/23 16:18 10/22/23 16:18 Temperature 98.2 F Pulse Rate [Pulse Oximeter] 67 67 Respiratory Rate 16 16 16 Blood Pressure [Le ft Arm] 138/81 Blood Pressure [Ri ght Arm] Pulse Oximetry 97 97 Oxygen Delivery Me thod Room Air Room Air Oxygen Flow Rate 10/22/23 19:00 10/22/23 23:00 10/22/23 23:00 Temperature 98.8 F Pulse Rate [Pulse Oximeter] 69 69 Respiratory Rate 18 18 18 Blood Pressure [Le ft Arm] Blood Pressure [Ri ght Arm] 138/70 Pulse Oximetry 95 95 Oxygen Delivery Me thod Nasal Cannula Nasal Cannula Oxygen Flow Rate 1 1 10/23/23 03:00 10/23/23 08:30 10/23/23 08:30 Temperature 97.6 F Pulse Rate [Pulse Oximeter] 68 66 Respiratory Rate 15 20 20 Blood Pressure [Le ft Arm] 118/71 Blood Pressure [Ri ght Arm] Pulse Oximetry 96 92 Oxygen Delivery Me thod Nasal Cannula Nasal Cannula Oxygen Flow Rate 1 1 10/23/23 08:35 10/23/23 11:32 Temperature 99 F 99 F Pulse Rate [Pulse Oximeter] 66 66 Respiratory Rate 20 12 Blood Pressure [Le ft Arm] 127/74 133/77 Blood Pressure [Ri ght Arm] Pulse Oximetry 92 92 Oxygen Delivery Me thod Room Air Room Air Oxygen Flow Rate DS: Data Imaging CT scan - chest: Radiologist's impression: Study:?CT-Chest PE W/ISOVUE 370 95CC-10/19/2023 10:15:01 PM Ordering Physician:WALTER Final Report: Indication: Short of breath, hypoxia, lung cancer, recent travel. Technique: CT pulmonary arteriography of the chest was performed following the administration of 95 mL Isovue 370. Comparison: Same day chest radiographs. PET-CT 09/13/2023 Findings: Lungs and pleura: Moderate bilateral pleural effusions. Mild interlobular septal thickening. Mosaic attenuation throughout both lungs. There is a spiculated nodule within the lingula measuring approximately 2.0 x 1.7 cm. There is associated pleural tethering. Mild atelectasis in the lower lobes. Calcified right upper lobe granuloma. Heart and great vessels: The heart is normal in size. No pericardial effusion. Aorta and pulmonary artery are normal in caliber. No evidence of right heart strain. Pulmonary artery opacification is adequate. Limited evaluation of the harvey bsegmental pulmonary arteries due to patient motion. Within this limitation,no evidence of pulmonary embolism. Thyroid and mediastinum: Enlarged and heterogeneous left thyroid lobe, incompletely visualized. Enlarged subcarinal lymph node. Chest wall: Unremarkable. Visualized upper abdomen: Unremarkable. Bones: Sclerotic lesions within the right scapula, right clavicle, left humeral head, sternum and several vertebral bodies consistent with metastatic osseous involvement. Impression: 1. No evidence of pulmonary embolism given limitations of respiratory motion which obscures subsegmental pulmonary artery branches. 2. New moderate bilateral pleural effusions with mild interstitial edema and bilateral ground-glass opacities, which may represent atelectasis, air trapping or alveolar edema. 3. Spiculated nodule within the lingula measuring 2 cm consistent with history of lung cancer. 4. Sclerotic osseous metastases and enlarged subcarinal lymph node concerning for metastatic involvement. 5. Enlarged and heterogeneous left thyroid lobe, similar to prior PET-CT. Discharge Plan Discharge Disposition: Home, Self-Care Date of Admission: 10/19/23 23:53 Attending Provider on Discharge: Vickey Nix Consulting Providers: Aaliyah Womack Primary Care Provider: Provider,Not a Local Condition: Improved Anticipated Discharge Date/Time: 10/23/23 15:00 Discharge Medications: New Jardiance 10 mg Tablet 10 mg PO DAILY Qty: 30 0RF furosemide 40 mg Tablet 80 mg PO BID@0800,1400 Qty: 60 0RF potassium chloride 10 mEq Capsule, Extended Release 30 meq PO TIDWM Qty: 180 0RF Continued atorvastatin 20 mg tablet 20 mg PO HS Tagrisso 80 mg tablet 80 mg PO DAILY memantine 10 mg tablet 10 mg PO BID allopurinol 100 mg tablet 200 mg PO DAILY metoprolol tartrate 50 mg tablet 50 mg PO BID paroxetine HCl 40 mg tablet 40 mg PO DAILY sennosides [Senna Lax] 8.6 mg tablet 8.6 - 17.2 mg PO DAILY Changed metformin 1,000 mg tablet 1,000 mg PO DAILY Qty: 30 0RF Discontinued triamterene-hydrochlorothiazid 37.5-25 mg capsule 1 cap PO QAM Discharge Orders: Discharge Order (Routine); Ordered 10/23/23 Ordered By: Vickey Nix Additional Instructions: Check your weight every day at the same time and record your weight. Bring this to your doctor's appointment to review. Bring your medicines to your doctor's appointment as well. Activity Level: Activity as Tolerated Discharge Diet: 2 gm Sodium Follow Up Appointments: Roro William MD [Staff Physician] - 11/01/23 10:00 am ( [facility] for follow-up. Check basic metabolic panel and CBC.) Provider,Not a Local [Primary Care Provider] - (Recommend f/u appt with either Dr. Oh or Dr. William (first available) in 5-7 days for hospital f/u. Check basic metabolic panel and CBC.) Forms: [employer] Info Instructions
[2023-10-23 16:13] VITALS: BP 130/77; PULSE 62; RESP 20; TEMP 36.7; O2SAT 94
--- NOTE | 2023-10-23 18:40 | PC.NURSE ---
End of Shift: Patient pleasant and cooperative. Patient vitally stable, lungs clear, BS WNL, IV removed, catheter intact. Patient independent in room and denies pain. Patient on RA but does require oxygen when sleeping. Patient tolerating regular diet, urinating, and had 1 BM. Patient blood [id number], 128, and 103. Patient signed belongings sheet and discharge form, and questions patient had regarding discharge were answered. Patient waiting for ride to home.
--- NOTE | 2023-10-23 19:04 | PC.NURSE ---
Patient left the floor by wheelchair to home at 1900.
== END 2023-10-23 19:00 | disposition home or self-care (01) | DRG 194 ==
LOC: ED 21:59 → MEDSURG 23:14
PROVIDERS: Family Medicine; Admitting Provider Internal Medicine; Emergency Provider Emergency Medicine; Visit Provider Internal Medicine
DX: I11.0 Hypertensive heart disease with heart failure (principal); I50.31 Acute diastolic (congestive) heart failure; J96.01 Acute respiratory failure with hypoxia; G47.33 Obstructive sleep apnea (adult) (pediatric); C34.92 Malignant neoplasm of unspecified part of left bronchus or lung; C79.31 Secondary malignant neoplasm of brain; C79.51 Secondary malignant neoplasm of bone; F41.1 Generalized anxiety disorder; E11.9 Type 2 diabetes mellitus without complications; D64.9 Anemia, unspecified; N17.0 Acute kidney failure with tubular necrosis; C34.12 Malignant neoplasm of upper lobe, left bronchus or lung; E87.6 Hypokalemia
CPT/HCPCS: 36415; 36430; 71045; 71046; 71275; 80048; 80053; 82803; 82962; 83036; 83605; 83735; 83880; 84100; 84132; 84145; 84443; 84484; 85025; 85027; 85610; 86140; 86850; 86900; 86901; 86922; 87631; 93005; 93306; 94640; 94761; 99284; 99285; A9270; J1650; J1940; J3475; J3480; J7050; P9016; Q9967

== ENCOUNTER 2023-11-05 09:35 | Outpatient (CLI) | payer BC, SELFPAY | END 2023-11-05 09:36 | disposition home or self-care (01) | LOC: NFLDREF 09:36 | PROVIDERS: PCP Internal Medicine; Visit Provider Internal Medicine | DX: I10 Essential (primary) hypertension (principal) | CPT/HCPCS: 80048 ==